=== PATIENT | female | born 1955 | race Hispanic/Latino ===

== ENCOUNTER 2017-05-12 16:10 | Emergency (ER) | payer MEDICAID ==
[2017-05-12 16:55] VITALS: BP 131/80
[2017-05-12] MEDS ORDERED: ZOFRAN IV ONE (18:07)
[2017-05-12] MEDS ORDERED: NACL 0.9% 1000 ML 1,000 ML IV ONE (18:07)
[2017-05-12 18:46] LABS: Basophils % (Auto) 0.8 % (0.0-1.8); Eosinophils % (Auto) 0.5 % (0.0-4.3); Hematocrit 40.8 % (30.3-42.9); Hemoglobin 13.4 gm/dl (10.1-14.3); Mean Corpuscular HGB Conc 33 % (30-34); Mean Corpuscular Hemoglobin 33 pg (28-32); Mean Corpuscular Volume 100 fl (79-97); Platelet Count 166 K/mm3 (140-440); Red Blood Count 4.08 M/mm3 (3.65-5.03); White Blood Count 6.8 K/mm3 (4.5-11.0)
--- NOTE | 2017-05-12 19:00 | Emergency Department Report ---
- General Chief complaint: Weakness Stated complaint: NEAR SYNCOPAL EPISODE Time Seen by Provider: 05/12/17 17:30 Source: patient, EMS Mode of arrival: Stretcher Limitations: No Limitations - Related Data Home Medications Medication Instructions Recorded Confirmed Last Taken Acetaminophen [Acetaminophen TAB] 500 mg PO PRN PRN 03/05/14 03/05/14 Unknown Aspirin [Aspirin TAB] 325 mg PO QDAY 03/05/14 03/05/14 03/05/14 Carvedilol [Coreg] 3.125 mg PO BID 03/05/14 03/05/14 03/05/14 Levothyroxine [Synthroid] 75 mcg PO QAM 03/05/14 03/05/14 03/05/14 Losartan [Cozaar] 25 mg PO QDAY 03/05/14 03/05/14 03/05/14 Sennosides [Senokot] 1 tab PO PRN PRN 03/05/14 03/05/14 Unknown diphenhydrAMINE [Benadryl CAP] 25 mg PO Q8HR PRN 03/05/14 03/05/14 Unknown guaiFENesin/DEXTROMETHORPHAN 1 tab PO PRN PRN 03/05/14 03/05/14 Unknown [Mucinex DM ER 600-30 mg TAB] Allergies Allergy/AdvReac Type Severity Reaction Status Date / Time No Known Allergies Allergy Verified 03/05/14 18:10 ED Review of Systems ROS: Stated complaint: NEAR SYNCOPAL EPISODE Other details as noted in HPI Comment: All other systems reviewed and negative ED Past Medical Hx - Past Medical History Previous Medical History?: Yes Hx Hypertension: Yes Hx Heart Attack/AMI: Yes - Surgical History Past Surgical History?: Yes Hx Coronary Stent: Yes Hx Pacemaker: Yes Hx Internal Defibrillator: Yes - Social History Smoking Status: Never Smoker - Medications Home Medications: Home Medications Medication Instructions Recorded Confirmed Last Taken Type Acetaminophen [Acetaminophen TAB] 500 mg PO PRN PRN 03/05/14 03/05/14 Unknown History Aspirin [Aspirin TAB] 325 mg PO QDAY 03/05/14 03/05/14 03/05/14 History Carvedilol [Coreg] 3.125 mg PO BID 03/05/14 03/05/14 03/05/14 History Levothyroxine [Synthroid] 75 mcg PO QAM 03/05/14 03/05/1403/05/14 History Losartan [Cozaar] 25 mg PO QDAY 03/05/14 03/05/14 03/05/14 History Sennosides [Senokot] 1 tab PO PRN PRN 03/05/14 03/05/14 Unknown History diphenhydrAMINE [Benadryl CAP] 25 mg PO Q8HR PRN 03/05/14 03/05/14 Unknown History guaiFENesin/DEXTROMETHORPHAN 1 tab PO PRN PRN 03/05/14 03/05/14 Unknown History [Mucinex DM ER 600-30 mg TAB] ED Physical Exam - General Limitations: No Limitations General appearance: alert, in no apparent distress - Head Head exam: Present: atraumatic, normocephalic - Eye Eye exam: Present: normal appearance - ENT ENT exam: Present: mucous membranes moist - Neck Neck exam: Present: normal inspection - Respiratory Respiratory exam: Present: normal lung sounds bilaterally. Absent: respiratory distress - Cardiovascular Cardiovascular Exam: Present: regular rate, normal rhythm. Absent: systolic murmur, diastolic murmur, rubs, gallop - GI/Abdominal GI/Abdominal exam: Present: soft, normal bowel sounds - Extremities Exam Extremities exam: Present: normal inspection - Back Exam Back exam: Present: normal inspection - Neurological Exam Neurological exam: Present: alert, oriented X3 - Psychiatric Psychiatric exam: Present: normal affect, normal mood - Skin Skin exam: Present: warm, dry, intact, normal color. Absent: rash ED Course Vital Signs 05/12/17 05/12/17 16:47 17:02 Temperature 98.4 F Pulse Rate 82 Respiratory 18 18 Rate Blood Pressure 131/80 O2 Sat by Pulse 100 100 Oximetry Critical care attestation.: If time is entered above; I have spent that time in minutes in the direct care of this critically ill patient, excluding procedure time. ED Disposition Clinical Impression: Weakness Is pt being admited?: No Does the pt Need Aspirin: No Condition: Good Instructions: Syncope (ED) Referrals: PRIMARY CARE,MD [Primary Care Provider] - 3-5 Days Time of Disposition: 19:29
[2017-05-12 19:08] LABS: Alanine Aminotransferase 38 units/L (7-56); Albumin 4.3 g/dL (3.9-5); Albumin/Globulin Ratio 1.3 %; Alkaline Phosphatase 70 units/L (35-129); Anion Gap 22 mmol/L; Blood Urea Nitrogen 23 mg/dL (7-17); Calcium 9.7 mg/dL (8.4-10.2); Carbon Dioxide 24 mmol/L (22-30); Chloride 101.5 mmol/L (98-107); Creatine Kinase 97 units/L (30-135); Glucose 84 mg/dL (65-100); Potassium 3.9 mmol/L (3.6-5.0); Sodium 144 mmol/L (137-145); Total Protein 7.5 g/dL (6.3-8.2)
--- NOTE | 2017-05-13 09:13 | XRay Report ---
Chest 2 views: History: Weakness. Findings: Normal cardiomediastinal silhouette the trachea is midline. Stable pacemaker. No consolidation, pneumothorax or pleural effusion. Impression: No acute cardiopulmonary findings.
== END 2017-05-12 20:17 ==
LOC: ED 16:10
DX: R53.1 Weakness (principal); I10 Essential (primary) hypertension; I25.2 Old myocardial infarction; Z95.0 Presence of cardiac pacemaker; Z79.82 Long term (current) use of aspirin
CPT/HCPCS: 36415; 71020; 80053; 82330; 82550; 83735; 84443; 84484; 85025; 85610; 96361; 96374; 99284; J2405; J7030

== ENCOUNTER 2018-12-25 01:02 | Emergency (ER) | payer MEDICAID, OTHER ==
[2018-12-25] MEDS ORDERED: TYLENOL PO ONE (01:31)
[2018-12-25] MEDS ORDERED: ZOFRAN ODT PO ONE (01:32)
--- NOTE | 2018-12-25 02:00 | XRay Report ---
FINAL REPORT EXAM: XR CHEST ROUTINE 2V HISTORY: cough COMPARISON: None available. FINDINGS:: Frontal and lateral views of the chest obtained. Mild cardiac enlargement. Left-sided car diac defibrillator is in place. Mild prominence of the pulmonary vasculature hazy bilateral perihilar opacities concerning for pulmonary congestion versus pneumonia. No pleural effusion or pneumothorax. IMPRESSION:: Findings concerning for mild bilateral perihilar pneumonia versus edema.
[2018-12-25 02:09] LABS: Basophils # (Auto) 0.1 K/mm3 (0.0-0.1); Basophils % (Auto) 0.7 % (0.0-1.8); Eosinophils # (Auto) 0.1 K/mm3 (0.0-0.4); Hematocrit 39.1 % (30.3-42.9); Hemoglobin 12.9 gm/dl (10.1-14.3); Lymphocytes # (Auto) 0.3 K/mm3 (1.2-5.4); Lymphocytes % (Auto) 3.9 % (13.4-35.0); Mean Corpuscular HGB Conc 33 % (30-34); Mean Corpuscular Volume 105 fl (79-97); Monocytes # (Auto) 0.6 K/mm3 (0.0-0.8); Monocytes % (Auto) 8.2 % (0.0-7.3); Platelet Count 176 K/mm3 (140-440); Red Blood Count 3.73 M/mm3 (3.65-5.03); Red Cell Distribution Width 16.1 % (13.2-15.2)
[2018-12-25 02:27] LABS: BUN/Creatinine Ratio 21; Blood Urea Nitrogen 19 mg/dL (7-17); Calcium 8.8 mg/dL (8.4-10.2); Hemolysis Index 9
[2018-12-25] MEDS ORDERED: NACL 0.9% 1000 ML 1,000 ML IV ONE (08:17)
[2018-12-25] MEDS ORDERED: ZOFRAN IV ONE (08:17)
[2018-12-25] MEDS ORDERED: LEVAQUIN 750MG/150ML 750 MG/150 ML BAG IV ONE (08:28)
[2018-12-25] MEDS ORDERED: TESSALON PERLES PO ONE (08:28)
--- NOTE | 2018-12-25 10:02 | Emergency Department Report ---
ED General Adult HPI - General Chief complaint: Syncope Stated complaint: NAUSEA & DIARRHEA Time Seen by Provider: 12/25/18 08:14 Source: patient, family Mode of arrival: Ambulatory Limitations: No Limitations - History of Present Illness Initial comments: Patient is a 63-year-old female who is presenting with cough cold congestion for the last 2 weeks. The patient states cough is productive for yellow sputum. Patient also has had some subjective chills and fever. Patient states she is nauseous and has had diarrhea for the last 2 days. Patient states that sometimes she coughs so hard that she feels faint and had a near syncopal episode yesterday. The patient also has some mild dizziness with standing for the last day. Patient's denies sore throat neck stiffness or body aches at this time. Severity scale (0 -10): 4 - Related Data Home Medications Medication Instructions Recorded Confirmed Last Taken Acetaminophen [Acetaminophen TAB] 500 mg PO PRN PRN 03/05/14 03/05/14 Unknown Aspirin [Aspirin TAB] 325 mg PO QDAY 03/05/14 03/05/14 03/05/14 Carvedilol [Coreg] 3.125 mg PO BID 03/05/14 03/05/14 03/05/14 Levothyroxine [Synthroid] 75 mcg PO QAM 03/05/14 03/05/14 03/05/14 Losartan [Cozaar] 25 mg PO QDAY 03/05/14 03/05/14 03/05/14 Sennosides [Senokot] 1 tab PO PRN PRN 03/05/14 03/05/14 Unknown diphenhydrAMINE [Benadryl CAP] 25 mg PO Q8HR PRN 03/05/14 03/05/14 Unknown guaiFENesin/DEXTROMETHORPHAN 1 tab PO PRN PRN 03/05/14 03/05/14 Unknown [Mucinex DM ER 600-30 mg TAB] Previous Rx's Medication Instructions Recorded Last Taken Type ALBUTEROL Inhaler (OR & NICU) 2 puff IH QID PRN #1 inhalation 12/25/18 Unknown Rx [ProAir HFA Inhaler] Benzonatate [Tessalon Perles] 100 mg PO Q8HR #10 capsule 12/25/18 Unknown Rx Ondansetron [Zofran Odt] 4 mg PO Q8HR PRN #10 tab.rapdis 12/25/18 Unknown Rx levoFLOXacin [Levaquin TAB] 500 mg PO QDAY #10 tablet 12/25/18 Unknown Rx Allergies Allergy/AdvReac Type Severity Reaction Status Date / Time No Known Allergies Allergy Verified 03/05/14 18:10 ED Review of Systems ROS: Stated complaint: NAUSEA & DIARRHEA Other details as noted in HPI Comment: All other systems reviewed and negative ED Past Medical Hx - Past Medical History Hx Hypertension: Yes Hx Heart Attack/AMI: Yes - Surgical History Hx Coronary Stent: Yes Hx Pacemaker: Yes Hx Internal Defibrillator: Yes - Social History Smoking Status: Never Smoker Substance Use Type: None - Medications Home Medications: Home Medications Medication Instructions Recorded Confirmed Last Taken Type Acetaminophen [Acetaminophen TAB] 500 mg PO PRN PRN 03/05/14 03/05/14 Unknown History Aspirin [Aspirin TAB] 325 mg PO QDAY 03/05/14 03/05/14 03/05/14 History Carvedilol [Coreg] 3.125 mg PO BID 03/05/14 03/05/14 03/05/14 History Levothyroxine [Synthroid] 75 mcg PO QAM 03/05/14 03/05/14 03/05/14 History Losartan [Cozaar] 25 mg PO QDAY 03/05/14 03/05/14 03/05/14 History Sennosides [Senokot] 1 tab PO PRN PRN 03/05/14 03/05/14 Unknown History diphenhydrAMINE [Benadryl CAP] 25 mg PO Q8HR PRN 03/05/14 03/05/14 Unknown History guaiFENesin/DEXTROMETHORPHAN 1 tab PO PRN PRN 03/05/14 03/05/14 Unknown History [Mucinex DM ER 600-30 mg TAB] ALBUTEROL Inhaler (OR & NICU) 2 puff IH QID PRN #1 inhalation 12/25/18 Unknown Rx [ProAir HFA Inhaler] Benzonatate [Tessalon Perles] 100 mg PO Q8HR #10 capsule 12/25/18 Unknown Rx Ondansetron [Zofran Odt] 4 mg PO Q8HR PRN #10 tab.rapdis 12/25/18 Unknown Rx levoFLOXacin [Levaquin TAB] 500 mg PO QDAY #10 tablet 12/25/18 Unknown Rx ED Physical Exam - General Limitations: No Limitations General appearance: alert, in no apparent distress - Head Head exam: Present: atraumatic, normocephalic - Eye Eye exam: Present: normal appearance - ENT ENT exam: Present: mucous membranes moist - Neck Neck exam: Present: normal inspection - Respiratory Respiratory exam: Present: normal lung sounds bilaterally, rhonchi. Absent: respiratory distress, wheezes, rales, stridor - Cardiovascular Cardiovascular Exam: Present: regular rate, normal rhythm, normal heart sounds. Absent: systolic murmur, diastolic murmur, rubs, gallop - GI/Abdominal GI/Abdominal exam: Present: soft, normal bowel sounds. Absent: distended, tenderness, guarding - Extremities Exam Extremities exam: Present: normal inspection - Back Exam Back exam: Present: normal inspection - Neurological Exam Neurological exam: Present: alert, oriented X3 - Psychiatric Psychiatric exam: Present: normal affect, normal mood - Skin Skin exam: Present: warm, dry, intact, normal color. Absent: rash ED Course Vital Signs 12/25/18 12/25/18 01:19 04:56 Temperature 100.3 F H 99.7 F H Pulse Rate 107 H Respiratory 18 Rate Blood Pressure 163/87 125/67 O2 Sat by Pulse 91 Oximetry ED Medical Decision Making - Lab Data Result diagrams: 12/25/18 01:57 12/25/18 01:57 - EKG Data -: EKG Interpreted by De - EKG Data 12/25/18 10:00 EKG shows sinus tachycardia 119 axis normal intervals and normal there is no ST segment elevation or depressions. Time of interpretation at [facility] - Radiology Data Referring Physician: ED GIANFRANCO Patient Name: LEV KINCAID Date of : 1955 Sex: Female Report Date: 2018-12-25 Report Status: Finalized Findings [facility] [address] [place] [address] XRay Report Signed Patient: LEV KINCAID MR#: [id number] : 1955 Acct:[id number] Age/Sex: 63 / F ADM Date: 12/25/18 Loc: ED Attending Dr: Ordering Physician: ED MD GIANFRANCO Date of Service: 02/11/19 Procedure(s): XR chest routine 2V Accession Number(s): [id number] cc: ED DOC, Fluoro Time In Minutes: FINAL REPORT EXAM: XR CHEST ROUTINE 2V HISTORY: cough COMPARISON: None available. FINDINGS:: Frontal and lateral views of the chest obtained. Mild cardiac enlargement. Left-sided cardiac defibrillator is in place. Mild prominence of the pulmonary vasculature hazy bilateral perihilar opacities concerning for pulmonary congestion versus pneumonia. No pleural effusion or pneumothorax. IMPRESSION:: Findings concerning for mild bilateral perihilar pneumonia versus edema. - Medical Decision Making Patient's chest x-ray shows possible pneumonia versus edema. With the patient's low-grade temperature and the duration of the patient's symptoms leading towards this being infectious etiology. Patient started on Levaquin. Patient's vital signs within normal limits Critical care attestation.: If time is entered above; I have spent that time in minutes in the direct care of this critically ill patient, excluding procedure time. ED Disposition Clinical Impression: Pneumonia Qualifiers: Pneumonia type: due to unspecified organism Laterality: right Lung location: middle lobe of lung Qualified Code(s): J18.1 - Lobar pneumonia, unspecified organism Disposition: DC-01 TO HOME OR SELFCARE Is pt being admited?: Yes Does the pt Need Aspirin: No Condition: Stable Instructions: Bacterial Pneumonia (ED) Referrals: WOLFGANG NGUYEN [Primary Care Provider] - 3-5 Days Time of Disposition: 10:02
[2018-12-25 10:23] VITALS: BP 121/70
== END 2018-12-25 10:22 | disposition home or self-care (01) ==
LOC: ED 01:02
DX: J18.1 Lobar pneumonia, unspecified organism (principal); I10 Essential (primary) hypertension; I25.2 Old myocardial infarction; Z95.5 Presence of coronary angioplasty implant and graft; Z95.818 Presence of other cardiac implants and grafts; Z79.899 Other long term (current) drug therapy
CPT/HCPCS: 36415; 71046; 80048; 85025; 93005; 93010; 96365; 96375; 99284; J1956; J2405; J7030; Q0162

== ENCOUNTER 2018-12-27 22:01 | Inpatient (IN) | payer SELFPAY ==
[2018-12-27] MEDS ORDERED: NORCO 7.5/325 PO ONE (22:11)
[2018-12-27] MEDS ORDERED: ATROVENT IH ONE (22:11)
[2018-12-27] MEDS ORDERED: SOLU-Medrol IV ONE (22:11)
[2018-12-27] MEDS ORDERED: PROVENTIL IH ONE (22:11)
--- NOTE | 2018-12-27 22:15 | Emergency Department Report ---
- General Stated Complaint: CHEST PAIN/COUGH Time Seen by Provider: 12/27/18 22:07 Source: patient - History of Present Illness Initial Comments: Patient is a 63-year-old female who is presenting with persistent cough cold congestion. Patient was seen by me 2 days ago and presented originally for cough for the last 2 weeks. Patient states that she also has subjective fevers and had a temperature 100.3 2 days ago. Patient states that she has gotten her Levaquin filled. Patient says she wheezes often does have COPD. Patient states that her breathing has gotten worse. She has not taken a breathing treatment today. Patient has also continued to have chills. Patient states this is the worsening shortness of breath and cough she also has developed some ankle edema in the last 2 days. - Related Data Home Medications Medication Instructions Recorded Confirmed Last Taken Acetaminophen [Acetaminophen TAB] 500 mg PO PRN PRN 03/05/14 03/05/14 Unknown Aspirin [Aspirin TAB] 325 mg PO QDAY 03/05/14 03/05/14 03/05/14 Carvedilol [Coreg] 3.125 mg PO BID 03/05/14 03/05/14 03/05/14 Levothyroxine [Synthroid] 75 mcg PO QAM 03/05/14 03/05/14 03/05/14 Losartan [Cozaar] 25 mg PO QDAY 03/05/14 03/05/14 03/05/14 Sennosides [Senokot] 1 tab PO PRN PRN 03/05/14 03/05/14 Unknown diphenhydrAMINE [Benadryl CAP] 25 mg PO Q8HR PRN 03/05/14 03/05/14 Unknown guaiFENesin/DEXTROMETHORPHAN 1 tab PO PRN PRN 03/05/14 03/05/14 Unknown [Mucinex DM ER 600-30 mg TAB] Previous Rx's Medication Instructions Recorded Last Taken Type ALBUTEROL Inhaler (OR & NICU) 2 puff IH QID PRN #1 inhalation 12/25/18 Unknown Rx [ProAir HFA Inhaler] Benzonatate [Tessalon Perles] 100 mg PO Q8HR #10 capsule 12/25/18 Unknown Rx Ondansetron [Zofran Odt] 4 mg PO Q8HR PRN #10 tab.rapdis 12/25/18 Unknown Rx levoFLOXacin [Levaquin TAB] 500 mg PO QDAY #10 tablet 12/25/18 Unknown Rx Allergies Allergy/AdvReac Type Severity Reaction Status Date / Time No Known Allergies Allergy Verified 03/05/14 18:10 ED Review of Systems ROS: Stated complaint: CHEST PAIN/COUGH Other details as noted in HPI Comment: All other systems reviewed and negative ED Past Medical Hx - Past Medical History Hx Hypertension: Yes Hx Heart Attack/AMI: Yes - Surgical History Hx Coronary Stent: Yes Hx Pacemaker: Yes Hx Internal Defibrillator: Yes - Social History Smoking Status: Never Smoker Substance Use Type: None - Medications Home Medications: Home Medications Medication Instructions Recorded Confirmed Last Taken Type Acetaminophen [Acetaminophen TAB] 500 mg PO PRN PRN 03/05/14 03/05/14 Unknown History Aspirin [Aspirin TAB] 325 mg PO QDAY 03/05/14 03/05/14 03/05/14 History Carvedilol [Coreg] 3.125 mg PO BID 03/05/14 03/05/14 03/05/14 History Levothyroxine [Synthroid] 75 mcg PO QAM 03/05/14 03/05/14 03/05/14 History Losartan [Cozaar] 25 mg PO QDAY 03/05/14 03/05/14 03/05/14 History Sennosides [Senokot] 1 tab PO PRN PRN 03/05/14 03/05/14 Unknown History diphenhydrAMINE [Benadryl CAP] 25 mg PO Q8HR PRN 03/05/14 03/05/14 Unknown History guaiFENesin/DEXTROMETHORPHAN 1 tab PO PRN PRN 03/05/14 03/05/14 Unknown History [Mucinex DM ER 600-30 mg TAB] ALBUTEROL Inhaler (OR & NICU) 2 puff IH QID PRN #1 inhalation 12/25/18 Unknown Rx [ProAir HFA Inhaler] Benzonatate [Tessalon Perles] 100 mg PO Q8HR #10 capsule 12/25/18 Unknown Rx Ondansetron [Zofran Odt] 4 mg PO Q8HR PRN #10 tab.rapdis 12/25/18 Unknown Rx levoFLOXacin [Levaquin TAB] 500 mg PO QDAY #10 tablet 02/11/19 Unknown Rx ED Physical Exam - General General appearance: alert, in distress - Head Head exam: Present: atraumatic, normocephalic - Eye Eye exam: Present: normal appearance - ENT ENT exam: Present: mucous membranes moist - Neck Neck exam: Present: normal inspection - Respiratory Respiratory exam: Present: respiratory distress (mild), wheezes. Absent: normal lung sounds bilaterally, rales, rhonchi, stridor - Cardiovascular Cardiovascular Exam: Present: normal rhythm, tachycardia. Absent: systolic murmur, diastolic murmur, rubs, gallop - GI/Abdominal GI/Abdominal exam: Present: soft, normal bowel sounds. Absent: distended, tenderness, guarding, rebound - Extremities Exam Extremities exam: Present: normal inspection, joint swelling (ankles bilaterally) - Back Exam Back exam: Present: normal inspection - Neurological Exam Neurological exam: Present: alert, oriented X3 - Psychiatric Psychiatric exam: Present: normal affect, normal mood - Skin Skin exam: Present: warm, dry, intact, normal color. Absent: rash ED Course Vital Signs 12/27/18 12/27/18 12/27/18 22:09 22:10 22:16 Temperature 100 F H Pulse Rate 126 H 128 H Pulse Rate [ Anterior Bilateral Throughout] Respiratory 12 Rate Respiratory Rate [Anterior Bilateral Throughout] Blood Pressure 163/82 152/83 152/82 Blood Pressure [Left] O2 Sat by Pulse 86 Oximetry 12/27/18 12/27/18 12/27/18 22:21 22:28 22:30 Temperature Pulse Rate 124 H 120 H Pulse Rate [ 121 H Anterior Bilateral Throughout] Respiratory 14 Rate Respiratory 18 Rate [Anterior Bilateral Throughout] Blood Pressure 151/91 Blood Pressure [Left] O2 Sat by Pulse Oximetry 12/27/18 12/27/18 12/27/18 22:41 22:46 23:00 Temperature Pulse Rate 125 H 120 H Pulse Rate [ Anterior Bilateral Throughout] Respiratory 25 H 25 H 20 Rate Respiratory Rate [Anterior Bilateral Throughout] Blood Pressure 171/93 152/82 Blood Pressure [Left] O2 Sat by Pulse 96 Oximetry 12/27/18 12/27/18 12/27/18 23:15 23:30 23:45 Temperature Pulse Rate 122 H 119 H Pulse Rate [ 120 H Anterior Bilateral Throughout] Respiratory 26 H 17 Rate Respiratory 16 Rate [Anterior Bilateral Throughout] Blood Pressure 148/122 129/72 Blood Pressure [Left] O2 Sat by Pulse Oximetry 12/28/18 12/28/18 00:00 00:54 Temperature Pulse Rate 120 H 121 H Pulse Rate [ Anterior Bilateral Throughout] Respiratory 18 14 Rate Respiratory Rate [Anterior Bilateral Throughout] Blood Pressure 133/68 Blood Pressure 106/57 [Left] O2 Sat by Pulse 96 Oximetry ED Medical Decision Making - Lab Data Result diagrams: 12/27/18 22:37 12/27/18 22:37 Lab Results 12/27/18 12/27/18 12/27/18 Range/Units 22:37 22:37 22:37 WBC 5.7 (4.5-11.0) K/mm3 RBC 3.63 L (3.65-5.03) M/mm3 Hgb 12.5 (10.1-14.3) gm/dl Hct 38.0 (30.3-42.9) % MCV 105 H (79-97) fl MCH 34 H (28-32) pg MCHC 33 (30-34) % RDW 15.7 H (13.2-15.2) % Plt Count 153 (140-440) K/mm3 Lymph % (Auto) 11.3 L (13.4-35.0) % [place] % (Auto) 9.5 H (0.0-7.3) % Eos % (Auto) 0.2 (0.0-4.3) % Baso % (Auto) 0.9 (0.0-1.8) % Lymph # 0.6 L (1.2-5.4) K/mm3 [place] # 0.5 (0.0-0.8) K/mm3 Eos # 0.0 (0.0-0.4) K/mm3 Baso # 0.1 (0.0-0.1) K/mm3 Seg Neutrophils % 78.1 H (40.0-70.0) % Seg Neutrophils # 4.5 (1.8-7.7) K/mm3 Sodium 136 L (137-145) mmol/L Potassium 4.0 (3.6-5.0) mmol/L Chloride 100.0 (98-107) mmol/L Carbon Dioxide 23 (22-30) mmol/L Anion Gap 17 mmol/L BUN 9 (7-17) mg/dL Creatinine 0.8 (0.7-1.2) mg/dL Estimated GFR > 60 ml/min BUN/Creatinine Ratio 11 % Glucose 95 (65-100) mg/dL Lactic Acid 1.30 (0.7-2.0) mmol/L Calcium 8.9 (8.4-10.2) mg/dL NT-Pro-B Natriuret Pep 2231 H (0-900) pg/mL - EKG Data -: EKG Interpreted by Nd - EKG Data 12/27/18 22:28 EKG shows sinus tachycardia 124 axis is leftward and was otherwise normal. Salena ent has septal Q waves present but no ST segment elevations or depressions. Time of interpretation is 2224 - Radiology Data [facility] [address] [place] [address] XRay Report Signed Patient: LEV KINCAID MR#: [id number] : 1955 Acct:[id number] Age/Sex: 63 / F ADM Date: 12/27/18 Loc: ED Attending Dr: Ordering Physician: MARY DIAZ MD Date of Service: 12/27/18 Procedure(s): XR chest 1V ap Accession Number(s): [id number] cc: MARY DIAZ MD Fluoro Time In Minutes: FINAL REPORT PROCEDURE: XR CHEST 1V AP TECHNIQUE: Chest radiograph anteroposterior view. CPT 51974 HISTORY: cough with shortness of breath COMPARISON: 12/25/2018. FINDINGS: There is moderate elevation of right hemidiaphragm. There is interval increase in the inhomogeneous densities involving left lower lung. New infiltrates are identified in the right upper lung. Right hilar structures are prominent. Mild cardiomegaly is noted. A unip olar cardiac device is noted on the left side with lead in place. IMPRESSION: Interval progression of the left pulmonary infiltrates and new infiltrates in the right upper lobe suspicious for pneumonia.. Transcribed By: [facility] Dictated By: CARLOS ENRIQUE NI Electronically Authenticated By: CARLOS ENRIQUE NI Signed Date/Time: 12/27/182240 DD/ 38 TD/TT: 12/27/182238 - Medical Decision Making Patient with no interval worsening of her chest x-ray. X-rays consistent with infiltrates suggestive of pneumonia. Patient does however also have elevated BNP as she has had some interval swelling of her ankles. 40 Lasix been added to her regimen. Patient had blood cultures drawn she's been started on Rocephin and azithromycin. Patient received an hour-long neb treatment which did help her symptoms. Patient still congested and wheezing however. Patient to be admitted to the hospitalist service. Critical care attestation.: If time is entered above; I have spent that time in minutes in the direct care of this critically ill patient, excluding procedure time. ED Disposition Clinical Impression: Pneumonia, Respiratory distress, Bronchospasm Disposition: OP ADMIT IP TO THIS HOSP Is pt being admited?: Yes Does the pt Need Aspirin: No Condition: Poor Instructions: Bacterial Pneumonia (ED) Referrals: LC WORTHINGTON MD [Primary Care Provider] - 3-5 Days Time of Disposition: 01:15
[2018-12-27] MEDS ORDERED: NACL 0.9% 500 ML 500 ML IV ONE (22:25)
[2018-12-27] MEDS ORDERED: ROCEPHIN/NS 2 GM/100 ML 2 GM/100 ML BAG IV ONE (22:25)
[2018-12-27] MEDS ORDERED: ZITHROMAX 500 MG in NACL 0.9% 250ML 250 ML IV ONE (22:25)
--- NOTE | 2018-12-27 22:41 | XRay Report ---
FINAL REPORT PROCEDURE: XR CHEST 1V AP TECHNIQUE: Chest radiograph anteroposterior view. CPT 31463 HISTORY: cough with shortness of breath COMPARISON: 12/25/2018. FINDINGS: There is moderate elevation of right hemidiaphragm. There is interval increase in the inhomogeneous d ensities involving left lower lung. New infiltrates are identified in the right upper lung. Right hil ar structures are prominent. Mild cardiomegaly is noted. A unipolar cardiac device is noted on the le ft side with lead in place. IMPRESSION: Interval progression of the left pulmonary infiltrates and new infiltrates in the right upper lobe silver spicious for pneumonia..
[2018-12-27 22:56] LABS: Basophils # (Auto) 0.1 K/mm3 (0.0-0.1); Basophils % (Auto) 0.9 % (0.0-1.8); Eosinophils % (Auto) 0.2 % (0.0-4.3); Hemoglobin 12.5 gm/dl (10.1-14.3); Lymphocytes # (Auto) 0.6 K/mm3 (1.2-5.4); Lymphocytes % (Auto) 11.3 % (13.4-35.0); Mean Corpuscular HGB Conc 33 % (30-34); Mean Corpuscular Volume 105 fl (79-97); Monocytes # (Auto) 0.5 K/mm3 (0.0-0.8); Monocytes % (Auto) 9.5 % (0.0-7.3); Platelet Count 153 K/mm3 (140-440); Red Blood Count 3.63 M/mm3 (3.65-5.03); Red Cell Distribution Width 15.7 % (13.2-15.2)
[2018-12-28 00:31] LABS: BUN/Creatinine Ratio 11; Blood Urea Nitrogen 9 mg/dL (7-17); Calcium 8.9 mg/dL (8.4-10.2); Hemolysis Index 13
[2018-12-28] MEDS ORDERED: LASIX IV ONE (00:48)
[2018-12-28 02:13] LABS: Bilirubin,Urine NEG (Negative); Blood,Urine NEG (Negative); Color,Urine Yellow (Yellow); Mucus,Urine FEW /HPF; Urobilinogen,Urine < 2.0 mg/dL (<2.0)
[2018-12-28] MEDS ORDERED: ZOFRAN IV PRN (02:32)
[2018-12-28 03:55] LABS: Creatine Kinase MB 3.7 ng/mL (0.0-4.0)
--- NOTE | 2018-12-28 04:32 | History and Physical Report ---
CHIEF COMPLAINT: Congestion. Other complaint includes chest discomfort. HISTORY OF PRESENT ILLNESS: The patient is a 63-year-old female, who said she has been having cough and congestion going on for about 2 days. Prior to that, the patient came to the Emergency Room presenting with cough only that lasted for 2 weeks and was given treatment with a prescription to fill Levaquin and take as outpatient. The patient said while she filled that prescription, she started having worsening shortness of breath and cough and there was also history of fever and chills and also swelling in the ankles and the patient presented for evaluation. She denied history of dizziness and said that she has some chest discomfort with coughing. PAST MEDICAL HISTORY: Pertinent for hypertension, coronary artery disease, status post myocardial infarction. PAST SURGICAL HISTORY: Pertinent for coronary stent placement, pacemaker placement, defibrillator placement. FAMILY HISTORY: Noncontributory. SOCIAL HISTORY: The patient does not smoke, does not drink alcohol and does not use illicit drugs. MEDICATIONS: The patient is on Tylenol 500 mg by mouth, frequency unknown as needed for headache and fever, aspirin 325 mg by mouth daily, Coreg 3.125 mg by mouth twice daily, Synthroid 75 mcg by mouth every morning, losartan 25 mg by mouth daily, Senokot 1 tablet by mouth as needed, frequency unknown, Benadryl 25 mg by mouth every 8 hours as needed for itching and allergic reaction, Mucinex DM ER 600/30 mg 1 by mouth as needed, frequency unknown, albuterol inhaler 2 puffs by inhalation q.i.d. as needed for shortness of breath, benzonatate or Tessalon Perles 100 mg by mouth every 8 hours, Zofran ODT 4 mg under the tongue q. 8 hours as needed for nausea and vomiting, Levaquin 500 mg by mouth daily. ALLERGIES: There are no known drug allergies. REVIEW OF SYSTEMS: CONSTITUTIONAL: There is fever, there is chills, but no diaphoresis. HEENT: There is no headache or sore throat. CARDIOVASCULAR: There is pleuritic chest pain, but no orthopnea. RESPIRATORY: Shortness of breath is present. Cough is present. Congestion is present. Wheezing is present. GASTROINTESTINAL: There is no nausea, no vomiting, no abdominal pain, diarrhea or constipation. NEUROLOGICAL: There is no numbness, no dizziness, no altered mental status. MUSCULOSKELETAL: Swelling of the ankles noted. No joint pain. DERMATOLOGICAL SYSTEM: There is no skin rash or itching. GENITOURINARY SYSTEM: There is no dysuria, hematuria, or flank pain. Rest of system review is normal. PHYSICAL EXAMINATION: GENERAL: At the time of exam, the patient was found to be alert, oriented x 3 and in mild distress due to shortness of breath. VITAL SIGNS: Shows temperature of 100 degrees Fahrenheit, pulse of 126, respirations 12, blood pressure 163/82, O2 sat of 86% on room air. HEENT: Showed pupils to be equal, round, reactive to light and accommodating. Extraocular muscles are intact. NECK: Supple with no JVD or carotid bruit. CARDIOVASCULAR SYSTEM: Show normal first and second heart sounds with no gallops or murmur. EXTREMITIES: The patient has 1+ ankle edema. RESPIRATORY SYSTEM: Show reduced air entry on both sides of the lung with respiratory wheezing. GASTROINTESTINAL SYSTEM: Show abdomen to be full, soft, nontender with no organomegaly or rigidity. NEUROLOGIC: Shows no focal deficit. MUSCULOSKELETAL: Show ankle swelling and no joint tenderness. DERMATOLOGICAL SYSTEM: Show no skin rash. GENITOURINARY SYSTEM: Show no costovertebral angle tenderness. PERTINENT LABORATORY AND IMAGING STUDIES: The patient had chest x-ray done that was read as showing interval progression of the left pulmonary infiltrate and new infiltrate in the right upper lobe suspicious for pneumonia. Lab results, the patient's CBC showed normal white count, normal hemoglobin and normal hematocrit with CBC differential showing elevated segmented neutrophil count of 78.1 and the patient's chemistry showed low sodium of 136, elevated brain natriuretic peptide level of 2231 and unremarkable urinalysis. DIAGNOSES: 1. Bilateral pneumonia. 2. Dyspnea, rule out congestive heart failure. PLAN OF CARE: 1. The patient will be admitted to telemetry as inpatient. 2. The patient will have cardiac enzymes involving troponin, total CK and CK-MB checked q. 6 hours x 2 level. 3. The patient will have 2D echo done in the morning. 4. The patient will have IV ceftriaxone 1 gram daily and IV Zithromax 500 mg daily. 5. The patient will have albuterol nebulizer 2.5 mg q. 6 hours as needed for shortness of breath. 6. The patient will be on Tylenol 650 mg by mouth every 4 hours for fever and headache and will be on Robitussin 200 mg by mouth every 4 hours as needed for cough and the patient will be on her home medications as shown in the medication reconciliation section. 7. The patient will be on oxygen by nasal cannula at 2 liters per minute. 8. The patient's diet will be 2 g sodium diet. 9. The patient will be on heparin 5000 units subcutaneous q. 12 hours for DVT prophylaxis. JOB# [id number] OCN/NTS
[2018-12-28] MEDS: HEPARIN SUB-Q SCH ×3 (05:55→22:11)
[2018-12-28] MEDS: SYNTHROID PO SCH (06:43)
[2018-12-28] MEDS: ZITHROMAX 500 MG in NACL 0.9% 250ML 250 ML IV SCH (10:24)
[2018-12-28] MEDS: ASPIRIN PO SCH (10:24)
[2018-12-28] MEDS: COZAAR PO SCH (10:25)
[2018-12-28] MEDS: COREG PO SCH ×2 (10:25→22:11)
[2018-12-28] MEDS: ROCEPHIN/NS 1 GM/50 ML 1 GM/50 ML BAG IV SCH (10:44)
[2018-12-28] MEDS: TYLENOL PO PRN (10:49)
[2018-12-28] MEDS: ROBITUSSIN PO PRN ×3 (10:50→23:01)
--- NOTE | 2018-12-28 12:31 | Event Note ---
Date: 12/28/18 Patient with history of CHF, follows with Dr. Ross, cardiology, presents with shortness of breath. I have seen and examined her. Continue current management.
--- NOTE | 2018-12-28 13:50 | Consultation ---
History of Present Illness Consult date: 12/28/18 Consult reason: congestive heart failure History of present illness: Patient is a 63 year old woman with a history of coronary artery disease, is chemic cardiomyopathy and has an indwelling cardiac defibrillator. She presents to this hospital with complaints of shortness of breath, coughs and lower extremity edema. Chest x-ray shows heart failure. Further cardiac evaluation with an echocardiogram reports evidence of at least moderate MR, moderate pulmonary hypertension. Left atrium is dilated with severely decreased left ventricular systolic function ejection 15-20%. Cardiac consultation was requested. Medications and Allergies Allergies Allergy/AdvReac Type Severity Reaction Status Date / Time No Known Allergies Allergy Verified 03/05/14 18:10 Home Medications Medication Instructions Recorded Confirmed Last Taken Type Acetaminophen [Acetaminophen TAB] 500 mg PO PRN PRN 03/05/14 12/28/18 12/07/18 20:00 History Aspirin [Aspirin TAB] 325 mg PO QDAY 03/05/14 12/28/18 11/16/18 09:00 History Carvedilol [Coreg] 3.125 mg PO BID 03/05/14 12/28/18 12/27/18 21:00 History Levothyroxine [Synthroid] 75 mcg PO QAM 03/05/14 12/28/18 12/27/18 06:00 History Losartan [Cozaar] 25 mg PO QDAY 03/05/14 12/28/18 12/27/18 21:00 History Sennosides [Senokot] 1 tab PO PRN PRN 03/05/14 12/28/18 11/17/18 21:00 History diphenhydrAMINE [Benadryl CAP] 25 mg PO Q8HR PRN 03/05/14 12/28/18 11/16/18 20:00 History guaiFENesin/DEXTROMETHORPHAN 1 tab PO PRN PRN 03/05/14 12/28/18 12/28/18 02:00 History [Mucinex DM ER 600-30 mg TAB] ALBUTEROL Inhaler (OR & NICU) 2 puff IH QID PRN #1 inhalation 12/25/18 12/28/18 12/28/18 02:00 Rx [ProAir HFA Inhaler] Benzonatate [Tessalon Perles] 100 mg PO Q8HR #10 capsule 0212/28/18 12/27/18 02:00 Rx Ondansetron [Zofran Odt] 4 mg PO Q8HR PRN #10 tab.rapdis 12/25/18 12/28/18 11/21/18 20:00 Rx levoFLOXacin [Levaquin TAB] 500 mg PO QDAY #10 tablet 12/25/18 12/28/18 12/28/18 02:00 Rx Carvedilol 3.125 mg PO BID 12/28/18 12/28/18 12/21/18 09:00 History Famotidine 40 mg PO BID 12/28/18 12/28/18 12/27/18 21:00 History Furosemide 40 mg PO DAILY 12/28/18 12/28/18 12/28/18 03:00 History Klor-Con 10 10 meq PO DAILY 12/28/18 12/28/18 12/26/18 09:00 History amLODIPine 2.5 mg PO DAILY PRN 12/28/18 12/28/18 12/05/18 22:00 History Active Meds: Active Medications Acetaminophen (Tylenol) 650 mg PO Q4H PRN PRN Reason: Fever >101 Last Admin: 12/28/18 10:49 Dose: 650 mg Documented by: Albuterol (Proventil) 2.5 mg IH Q6HRT PRN PRN Reason: Shortness Of Breath Aspirin (Aspirin) 325 mg PO QDAY [facility] Last Admin: 12/28/18 10:24 Dose: 325 mg Documented by: Carvedilol (Coreg) 3.125 mg PO BID [facility] Last Admin: 12/28/18 10:25 Dose: 3.125 mg Documented by: Diphenhydramine HCl (Benadryl) 25 mg PO Q8H PRN PRN Reason: Allergy Symptoms Guaifenesin (Robitussin) 200 mg PO Q4H PRN PRN Reason: Cough Last Admin: 12/28/18 10:50 Dose: 200 mg Documented by: Heparin Sodium (Porcine) (Heparin) 5,000 unit SUB-Q Q12HR [facility] Last Admin: 12/28/18 10:26 Dose: 5,000 unit Documented by: Azithromycin 500 mg/ Sodium (Chloride) 250 mls @ 250 mls/hr IV Q24HR [facility] Last Admin: 12/28/18 10:24 Dose: 250 mls/hr Documented by: Ceftriaxone Sodium (Rocephin/Ns 1 Gm/50 Ml) 1 gm in 50 mls @ 100 mls/hr IV Q24HR [facility]; Protocol Last Admin: 12/28/18 10:44 Dose: 100 mls/hr Documented by: Levothyroxine Sodium (Synthroid) 75 mcg PO QAM@0600 [facility] Last Admin: 12/28/18 06:43 Dose: 75 mcg Documented by: Losartan Potassium (Cozaar) 25 mg PO QDAY [facility] Last Admin: 12/28/18 10:25 Dose: 25 mg Documented by: Ondansetron HCl (Zofran) 4 mg IV Q8H PRN PRN Reason: Nausea And Vomiting Senna (Senokot) 8.6 mg PO BID PRN PRN Reason: Constipation Physical Examination Vital Signs Temp Pulse BP Pulse Ox 100 F H 126 H 163/82 86 12/27/18 22:09 12/27/18 22:09 12/27/18 22:09 12/27/18 22:09 General appearance: no acute distress HEENT: Positive: PERRL Cardiac: Positive: Reg Rate and Rhythm Lungs: Positive: Decreased Breath Sounds Neuro: Positive: Grossly Intact Extremities: Present: +1 Edema Results 12/27/18 22:37 12/27/18 22:37 Cardiac Enzymes 12/28/18 Range/Units 03:18 CK-MB (CK-2) 3.7 (0.0-4.0) ng/mL CBC 12/27/18 Range/Units 22:37 WBC 5.7 (4.5-11.0) K/mm3 RBC 3.63 L (3.65-5.03) M/mm3 Hgb 12.5 (10.1-14.3) gm/dl Hct 38.0 (30.3-42.9) % Plt Count 153 (140-440) K/mm3 Lymph # 0.6 L (1.2-5.4) K/mm3 [place] # 0.5 (0.0-0.8) K/mm3 Eos # 0.0 (0.0-0.4) K/mm3 Baso # 0.1 (0.0-0.1) K/mm3 Comprehensive Metabolic Panel 12/27/18 Range/Units 22:37 Sodium 136 L (137-145) mmol/L Potassium 4.0 (3.6-5.0) mmol/L Chloride 100.0 (98-107) mmol/L Carbon Dioxide 23 (22-30) mmol/L BUN 9 (7-17) mg/dL Creatinine 0.8 (0.7-1.2) mg/dL Glucose 95 (65-100) mg/dL Calcium 8.9 (8.4-10.2) mg/dL Assessment and Plan Acute systolic heart failure Hx of Ischemic CMP Hx of CAD Presence of AICD Recommendations: Medical therapy for heart failure to include IV diuretics, beta blockers, afterload reduction agents and low dose aspirin. Medical therapy for coronary artery disease. Fluid/Sodium restriction. Daily weight. Pre-discharged persantine thallium for ischemic evaluation.
[2018-12-28] MEDS: LASIX IV SCH (17:59)
[2018-12-28] MEDS ORDERED: LASIX PO SCH (18:00)
[2018-12-28] MEDS: BENADRYL PO PRN (23:01)
[2018-12-29] MEDS: TYLENOL PO PRN (01:35)
[2018-12-29] MEDS: PROVENTIL IH PRN ×3 (02:01→19:13)
[2018-12-29] MEDS: ROBITUSSIN PO PRN ×3 (06:14→14:33)
[2018-12-29] MEDS: SYNTHROID PO SCH (06:14)
[2018-12-29] MEDS: LASIX IV SCH ×2 (06:15→18:41)
[2018-12-29] MEDS: ROCEPHIN/NS 1 GM/50 ML 1 GM/50 ML BAG IV SCH (10:01)
[2018-12-29] MEDS: ASPIRIN PO SCH (10:02)
[2018-12-29] MEDS: ALDACTONE PO SCH (10:02)
[2018-12-29] MEDS: ZITHROMAX 500 MG in NACL 0.9% 250ML 250 ML IV SCH (10:02)
[2018-12-29] MEDS: COREG PO SCH ×2 (10:03→21:32)
[2018-12-29] MEDS: COZAAR PO SCH (10:03)
[2018-12-29] MEDS: HEPARIN SUB-Q SCH ×2 (10:06→21:34)
--- NOTE | 2018-12-29 10:07 | Progress Note ---
Addendum entered and electronically signed by JUANA GRULLON MD 12/29/18 11:50: Ischemic cardiomyopathy LVEF 30-35% Patent LAD and Cx stents by [facility] 2011 MPI revealed fixed anterior, anterolateral, lateral and septal wall defect, no ischemia 02/2014 Shortness of breath Bilateral pulmonary infiltrates on CXR Acute on chronic systolic heart failure Patient admits non-compliance with her diuretic therapy Patient admits gaining 16 lbs in weight Patient is Coronary artery disease s/p PCI to LAD and Cx Recommendations: Continue empiric antibiotic therapy Continue IV diuresis, afterload reduction Monitor Is and Os and renal function Will continue to follow Original Note: <QUIANA CAMPA - Last Filed: 12/29/18 10:06> Assessment and Plan Acute systolic heart failure Hx of Ischemic CMP Hx of CAD Presence of AICD Recommendations: Aggressive medical therapy for heart failure to include IV diuretics, beta blockers, afterload reduction agents and low dose aspirin. Continue medical therapy for coronary artery disease. Fluid/Sodium restriction. Daily weight. Pre-discharged persantine thallium for ischemic evaluation. Subjective Date of service: 12/29/18 Interval history: Patient reports continued shortness of breath with minimal exertion. Objective Vital Signs Temp Pulse Pulse Resp Resp BP BP 12/29/18 10:03 131 H 153/79 12/29/18 10:02 131 H 153/79 12/29/18 09:01 100 H 20 12/29/18 08:51 104 H 20 12/29/18 08:01 12/29/18 08:00 98.3 F 131 H 25 H 153/79 12/29/18 04:13 97.2 F L 17 125/68 12/29/18 02:10 103 H 18 12/29/18 02:04 99 H 18 12/29/18 01:35 22 12/29/18 01:31 101.2 F H 17 137/73 12/29/18 00:35 20 12/28/18 20:35 96 H 12/28/18 20:28 12/28/18 19:41 98.0 F 96 H 20 132/67 12/28/18 16:15 97.9 F 92 H 18 125/77 12/28/18 12:17 109/64 12/28/18 10:25 109 H 133/67 Pulse Ox 12/29/18 10:03 12/29/18 10:02 12/29/18 09:01 12/29/18 08:51 12/29/18 08:01 96 12/29/18 08:00 96 12/29/18 04:13 12/29/18 02:10 12/29/18 02:04 12/29/18 01:35 12/29/18 01:31 12/29/18 00:35 12/28/18 20:35 12/28/18 20:28 95 12/28/18 19:41 97 12/28/18 16:15 93 12/28/18 12:17 12/28/18 10:25 - Physical Examination General: No Apparent Distress HEENT: Positive: PERRL Cardiac: Positive: Tachycardia Neuro: Positive: Grossly Intact Extremities: Present: +1 Edema <JUANA GRULLON K - Last Filed: 12/29/18 11:50> Objective Vital Signs Temp Pulse Pulse Resp Resp BP BP 12/29/18 10:03 131 H 153/79 12/29/18 10:02 131 H 153/79 12/29/18 09:01 100 H 20 12/29/18 08:51 104 H 20 12/29/18 08:01 12/29/18 08:00 98.3 F 131 H 25 H 153/79 12/29/18 04:13 97.2 F L 17 125/68 12/29/18 02:10 103 H 18 12/29/18 02:04 99 H 18 12/29/18 01:35 22 12/29/18 01:31 101.2 F H 17 137/73 12/29/18 00:35 20 12/28/18 20:35 96 H 12/28/18 20:28 12/28/18 19:41 98.0 F 96 H 20 132/67 12/28/18 16:15 97.9 F 92 H 18 125/77 12/28/18 12:17 109/64 Pulse Ox 12/29/18 10:03 12/29/18 10:02 12/29/18 09:01 12/29/18 08:51 12/29/18 08:01 96 12/29/18 08:00 96 12/29/18 04:13 12/29/18 02:10 02/15/19 02:04 12/29/18 01:35 12/29/18 01:31 12/29/18 00:35 12/28/18 20:35 12/28/18 20:28 95 12/28/18 19:41 97 12/28/18 16:15 93 12/28/18 12:17
--- NOTE | 2018-12-29 12:59 | Progress Note ---
Assessment and Plan Assessment and plan: Acute on chronic systolic heart failure. Lasix iv Coreg po Cardiology following Ischemic Cardiomyopathy s/p AICD CAD s/p PCI Bilateral pneumonia. Cont Rocephin, Zithromax Hypthyroidsim. Levothyroxine DVT prophylaxis Full code status History Interval history: Shortness of breath Hospitalist Physical - Physical exam Narrative exam: GEN: Not in acute distress, HEENT: Normocephalic, atraumatic, Neck: supple, No JVD Lungs: Bilateral crackles,no wheeze Heart:S1 and S2 regular, no murmurs, rubs or gallop, Abd:soft, non tender, non distended, normal bowel sounds Ext: No edema, no clubbing or cyanosis Neuro: AAO x 3, moves all extremities, no focal neurological signs - Constitutional Vitals: Temp Pulse Resp BP Pulse Ox 98.3 F 131 H 20 153/79 96 12/29/18 08:00 12/29/18 10:03 12/29/18 09:01 12/29/18 10:03 12/29/18 08:01 General appearance: Present: no acute distress Results - Labs CBC & Chem 7: 12/27/18 22:37 12/27/18 22:37 Labs: Laboratory Last Values WBC 5.7 K/mm3 (4.5-11.0) 12/27/18 22:37 RBC 3.63 M/mm3 (3.65-5.03) L 12/27/18 22:37 Hgb 12.5 gm/dl (10.1-14.3) 12/27/18 22:37 Hct 38.0 % (30.3-42.9) 12/27/18 22:37 MCV 105 fl (79-97) H 12/27/18 22:37 MCH 34 pg (28-32) H 12/27/18 22:37 MCHC 33 % (30-34) 12/27/18 22:37 RDW 15.7 % (13.2-15.2) H 12/27/18 22:37 Plt Count 153 K/mm3 (140-440) 12/27/18 22:37 Lymph % (Auto) 11.3 % (13.4-35.0) L 12/27/18 22:37 [place] % (Auto) 9.5 % (0.0-7.3) H 12/27/18 22:37 Eos % (Auto) 0.2 % (0.0-4.3) 12/27/18 22:37 Baso % (Auto) 0.9 % (0.0-1.8) 12/27/18 22:37 Lymph # 0.6 K/mm3 (1.2-5.4) L 12/27/18 22:37 [place] # 0.5 K/mm3 (0.0-0.8) 12/27/18 22:37 Eos # 0.0 K/mm3 (0.0-0.4) 12/27/18 22:37 Baso # 0.1 K/mm3 (0.0-0.1) 12/27/18 22:37 Seg Neutrophils % 78.1 % (40.0-70.0) H 12/27/18 22:37 Seg Neutrophils # 4.5 K/mm3 (1.8-7.7) 12/27/18 22:37 Sodium 136 mmol/L (137-145) L 12/27/18 22:37 Potassium 4.0 mmol/L (3.6-5.0) 12/27/18 22:37 Chloride 100.0 mmol/L (98-107) 12/27/18 22:37 Carbon Dioxide 23 mmol/L (22-30) 12/27/18 22:37 Anion Gap 17 mmol/L 12/27/18 22:37 BUN 9 mg/dL (7-17) 12/27/18 22:37 Creatinine 0.8 mg/dL (0.7-1.2) 12/27/18 22:37 Estimated GFR > 60 ml/min 12/27/18 22:37 BUN/Creatinine Ratio 11 % 12/27/18 22:37 Glucose 95 mg/dL (65-100) 12/27/18 22:37 Lactic Acid 1.90 mmol/L (0.7-2.0) 12/28/18 01:43 Calcium 8.9 mg/dL (8.4-10.2) 12/27/18 22:37 Total Creatine Kinase 250 units/L (30-135) H 12/28/18 03:18 CK-MB (CK-2) 3.7 ng/mL (0.0-4.0) 12/28/18 03:18 CK-MB (CK-2) Rel Index 1.4 (0-4) 12/28/18 03:18 Troponin T < 0.010 ng/mL (0.00-0.029) 12/28/18 03:18 NT-Pro-B Natriuret Pep 2231 pg/mL (0-900) H 12/27/18 22:37 Urine Color Yellow (Yellow) 12/27/18 01:10 Urine Turbidity Clear (Clear) 12/27/18 01:10 Urine pH 5.0 (5.0-7.0) 12/27/18 01:10 Ur Specific [place] 1.023 (1.003-1.030) 12/27/18 01:10 Urine Protein 100 mg/dl mg/dL (Negative) 12/27/18 01:10 Urine Glucose (UA) Neg mg/dL (Negative) 12/27/18 01:10 Urine Ketones 20 mg/dL (Negative) 12/27/18 01:10 Urine Blood Neg (Negative) 12/27/18 01:10 Urine Nitrite Neg (Negative) 12/27/18 01:10 Urine Bilirubin Neg (Negative) 12/27/18 01:10 Urine Urobilinogen < 2.0 mg/dL (<2.0) 12/27/18 01:10 Ur Leukocyte Esterase Neg (Negative) 12/27/18 01:10 Urine WBC (Auto) 3.0 /HPF (0.0-6.0) 12/27/18 01:10 Urine RBC (Auto) 1.0 /HPF (0.0-6.0) 12/27/18 01:10 U Epithel Cells (Auto) < 1.0 /HPF (0-13.0) 12/27/18 01:10 Urine Mucus Few /HPF 12/27/18 01:10
[2018-12-30] MEDS: SYNTHROID PO SCH (06:18)
[2018-12-30] MEDS: LASIX IV SCH ×2 (06:18→17:12)
[2018-12-30] MEDS: COZAAR PO SCH (09:58)
[2018-12-30] MEDS: COREG PO SCH ×2 (09:58→23:14)
[2018-12-30] MEDS: ALDACTONE PO SCH (09:59)
[2018-12-30] MEDS: HEPARIN SUB-Q SCH ×2 (09:59→23:14)
[2018-12-30] MEDS: ROCEPHIN/NS 1 GM/50 ML 1 GM/50 ML BAG IV SCH (09:59)
[2018-12-30] MEDS: ASPIRIN PO SCH (09:59)
--- NOTE | 2018-12-30 10:24 | Progress Note ---
Assessment and Plan Ischemic cardiomyopathy LVEF 30-35% Patent LAD and Cx stents by [facility] 2011 MPI revealed fixed anterior, anterolateral, lateral and septal wall defect, no ischemia 02/2014 Shortness of breath Bilateral pulmonary infiltrates on CXR Acute on chronic systolic heart failure Patient admits non-compliance with her diuretic therapy Patient admits gaining 16 lbs in weight Coronary artery disease s/p PCI to LAD and Cx Recommendations: Continue empiric antibiotic therapy Switch to po diuresis, lasix 40 mg po bid upon discharge Monitor Is and Os and renal function No further inpatient cardiac work-up is needed Subjective Date of service: 12/30/18 Principal diagnosis: Shortness of breath Interval history: Patient is feeling better Her shortness of breath has significantly improved Objective Vital Signs Temp Pulse Pulse Resp Resp BP Pulse Ox 12/30/18 08:44 99.0 F 111 H 20 129/70 95 12/30/18 05:07 98.6 F 108 H 17 139/77 91 12/30/18 00:01 99.6 F 106 H 17 118/67 90 12/30/18 00:00 102 H 12/29/18 20:01 100.0 F H 123 H 17 132/66 95 12/29/18 19:23 115 H 15 12/29/18 19:14 96 12/29/18 19:13 111 H 16 12/29/18 12:51 96 H 113/53 93 - Physical Examination General: No Apparent Distress HEENT: Positive: PERRL Neck: Positive: neck supple Cardiac: Positive: Reg Rate and Rhythm Lungs: Positive: Normal Exam Neuro: Positive: Grossly Intact Extremities: Present: +1 Edema
[2018-12-30] MEDS: ZITHROMAX 500 MG in NACL 0.9% 250ML 250 ML IV SCH (11:00)
--- NOTE | 2018-12-30 12:25 | Progress Note ---
Assessment and Plan Assessment and plan: Acute on chronic systolic heart failure. Lasix iv Coreg po Cardiology following Acute resp failure. On supplemental oxygen O2 sat 85% on room air today Ischemic Cardiomyopathy s/p AICD CAD s/p PCI Bilateral pneumonia. Cont Rocephin, Zithromax Hypthyroidsim. Levothyroxine DVT prophylaxis with Heparin Full code status Hopefully dc home in 1-2 days History Interval history: Still has shortness of breath. O2 sat 85% on room air today Hospitalist Physical - Physical exam Narrative exam: GEN: Not in acute distress, HEENT: Normocephalic, atraumatic, Neck: supple, No JVD Lungs: Bilateral crackles,no wheeze Heart:S1 and S2 regular, no murmurs, rubs or gallop, Abd:soft, non tender, non distended, normal bowel sounds Ext: No edema, no clubbing or cyanosis Neuro: AAO x 3, moves all extremities, no focal neurological signs - Constitutional Vitals: Temp Pulse Resp BP Pulse Ox 99.0 F 111 H 18 129/70 90 12/30/18 08:44 12/30/18 08:44 12/30/18 10:00 12/30/18 08:44 12/30/18 11:49 General appearance: Present: no acute distress Results - Labs CBC & Chem 7: 12/27/18 22:37 12/27/18 22:37 Labs: Laboratory Last Values WBC 5.7 K/mm3 (4.5-11.0) 12/27/18 22:37 RBC 3.63 M/mm3 (3.65-5.03) L 12/27/18 22:37 Hgb 12.5 gm/dl (10.1-14.3) 12/27/18 22:37 Hct 38.0 % (30.3-42.9) 12/27/18 22:37 MCV 105 fl (79-97) H 12/27/18 22:37 MCH 34 pg (28-32) H 12/27/18 22:37 MCHC 33 % (30-34) 12/27/18 22:37 RDW 15.7 % (13.2-15.2) H 12/27/18 22:37 Plt Count 153 K/mm3 (140-440) 12/27/18 22:37 Lymph % (Auto) 11.3 % (13.4-35.0) L 12/27/18 22:37 [place] % (Auto) 9.5 % (0.0-7.3) H 12/27/18 22:37 Eos % (Auto) 0.2 % (0.0-4.3) 12/27/18 22:37 Baso % (Auto) 0.9 % (0.0-1.8) 12/27/18 22:37 Lymph # 0.6 K/mm3 (1.2-5.4) L 12/27/18 22:37 [place] # 0.5 K/mm3 (0.0-0.8) 12/27/18 22:37 Eos # 0.0 K/mm3 (0.0-0.4) 12/27/18 22:37 Baso # 0.1 K/mm3 (0.0-0.1) 12/27/18 22:37 Seg Neutrophils % 78.1 % (40.0-70.0) H 12/27/18 22:37 Seg Neutrophils # 4.5 K/mm3 (1.8-7.7) 12/27/18 22:37 Sodium 136 mmol/L (137-145) L 12/27/18 22:37 Potassium 4.0 mmol/L (3.6-5.0) 12/27/18 22:37 Chloride 100.0 mmol/L (98-107) 12/27/18 22:37 Carbon Dioxide 23 mmol/L (22-30) 12/27/18 22:37 Anion Gap 17 mmol/L 12/27/18 22:37 BUN 9 mg/dL (7-17) 12/27/18 22:37 Creatinine 0.8 mg/dL (0.7-1.2) 12/27/18 22:37 Estimated GFR > 60 ml/min 12/27/18 22:37 BUN/Creatinine Ratio 11 % 12/27/18 22:37 Glucose 95 mg/dL (65-100) 12/27/18 22:37 Lactic Acid 1.90 mmol/L (0.7-2.0) 12/28/18 01:43 Calcium 8.9 mg/dL (8.4-10.2) 12/27/18 22:37 Total Creatine Kinase 250 units/L (30-135) H 12/28/18 03:18 CK-MB (CK-2) 3.7 ng/mL (0.0-4.0) 12/28/18 03:18 CK-MB (CK-2) Rel Index 1.4 (0-4) 12/28/18 03:18 Troponin T < 0.010 ng/mL (0.00-0.029) 12/28/18 03:18 NT-Pro-B Natriuret Pep 2231 pg/mL (0-900) H 12/27/18 22:37 Urine Color Yellow (Yellow) 12/27/18 01:10 Urine Turbidity Clear (Clear) 12/27/18 01:10 Urine pH 5.0 (5.0-7.0) 12/27/18 01:10 Ur Specific [place] 1.023 (1.003-1.030) 12/27/18 01:10 Urine Protein 100 mg/dl mg/dL (Negative) 12/27/18 01:10 Urine Glucose (UA) Neg mg/dL (Negative) 12/27/18 01:10 Urine Ketones 20 mg/dL (Negative) 12/27/18 01:10 Urine Blood Neg (Negative) 12/27/18 01:10 Urine Nitrite Neg (Negative) 12/27/18 01:10 Urine Bilirubin Neg (Negative) 12/27/18 01:10 Urine Urobilinogen < 2.0 mg/dL (<2.0) 12/27/18 01:10 Ur Leukocyte Esterase Neg (Negative) 12/27/18 01:10 Urine WBC (Auto) 3.0 /HPF (0.0-6.0) 12/27/18 01:10 Urine RBC (Auto) 1.0 /HPF (0.0-6.0) 12/27/18 01:10 U Epithel Cells (Auto) < 1.0 /HPF (0-13.0) 12/27/18 01:10 Urine Mucus Few /HPF 12/27/18 01:10
[2018-12-30] MEDS: PROVENTIL IH PRN (20:43)
[2018-12-31] MEDS: LASIX IV SCH ×2 (07:07→17:52)
[2018-12-31] MEDS: SYNTHROID PO SCH (07:08)
[2018-12-31] MEDS: ASPIRIN PO SCH (09:15)
--- NOTE | 2018-12-31 09:15 | Progress Note ---
Assessment and Plan Ischemic cardiomyopathy LVEF 30-35% Patent LAD and Cx stents by [facility] 2011 MPI revealed fixed anterior, anterolateral, lateral and septal wall defect, no ischemia 02/2014 Shortness of breath Bilateral pulmonary infiltrates on CXR Left sided crackles on exam Acute on chronic systolic heart failure Patient admits non-compliance with her diuretic therapy Patient admits gaining 16 lbs in weight Coronary artery disease s/p PCI to LAD and Cx Recommendations: Continue empiric antibiotic therapy Switch to po diuresis, lasix 40 mg po bid upon discharge Monitor Is and Os and renal function No further inpatient cardiac work-up is needed Subjective Date of service: 12/31/18 Principal diagnosis: Shortness of breath Interval history: Patient continues to require oxygen supplementation Objective Vital Signs Temp Pulse Pulse Resp Resp BP Pulse Ox 12/31/18 07:50 97.6 F 95 H 16 111/62 89 12/31/18 05:01 99.9 F H 97 H 22 112/54 90 12/30/18 23:14 107 H 111/56 12/30/18 22:00 89 12/30/18 20:53 112 H 18 12/30/18 20:43 104 H 18 12/30/18 20:39 94 12/30/18 20:15 103 H 12/30/18 19:59 98.6 F 103 H 20 126/67 82 L 12/30/18 17:32 98.4 F 107 H 28 H 144/76 86 12/30/18 12:45 96 H 18 87/43 81 L 12/30/18 11:49 90 12/30/18 10:00 18 93 - Physical Examination General: No Apparent Distress HEENT: Positive: PERRL Neck: Positive: neck supple Cardiac: Positive: Reg Rate and Rhythm Lungs: Positive: Decreased Breath Sounds, Rales Neuro: Positive: Grossly Intact Extremities: Present: +1 Edema
[2018-12-31] MEDS: ALDACTONE PO SCH (09:21)
[2018-12-31] MEDS: COREG PO SCH ×2 (09:21→22:12)
[2018-12-31] MEDS: ROCEPHIN/NS 1 GM/50 ML 1 GM/50 ML BAG IV SCH (09:22)
[2018-12-31] MEDS: ZITHROMAX 500 MG in NACL 0.9% 250ML 250 ML IV SCH (09:22)
[2018-12-31] MEDS: COZAAR PO SCH (09:23)
[2018-12-31] MEDS: HEPARIN SUB-Q SCH ×2 (09:24→22:13)
[2018-12-31 10:37] LABS: Hematocrit 35.4 % (30.3-42.9); Hemoglobin 11.8 gm/dl (10.1-14.3); Mean Corpuscular HGB Conc 34 % (30-34); Mean Corpuscular Volume 102 fl (79-97); Red Blood Count 3.48 M/mm3 (3.65-5.03); Red Cell Distribution Width 15.2 % (13.2-15.2)
[2018-12-31 11:02] LABS: Calcium 8.3 mg/dL (8.4-10.2)
--- NOTE | 2018-12-31 12:18 | XRay Report ---
FINAL REPORT EXAM: XR CHEST 1V AP HISTORY: Pneumonia, CHF, shortness of breath TECHNIQUE: Chest, portable PRIORS: 12/27/2018 FINDINGS: There is unchanged borderline cardiomegaly. There unchanged bilateral patchy infiltrates, left more than right. There is no pneumothorax. There is no pleural fluid. Pacemaker projects on the left. IMPRESSION: Unchanged infiltrates
[2018-12-31 12:30] LABS: Platelet Count 140 K/mm3 (140-440)
--- NOTE | 2018-12-31 12:41 | Progress Note ---
Assessment and Plan Assessment and plan: Acute on chronic systolic heart failure. Lasix iv Coreg po Cardiology following Acute resp failure. Still has shortness of breath On supplemental oxygen O2 sat 85% on room air yesterday Repeat CXR today, ABG Consult Pulm Ischemic Cardiomyopathy s/p AICD CAD s/p PCI Bilateral pneumonia. Cont Rocephin, Zithromax Hypthyroidsim. Levothyroxine DVT prophylaxis with Heparin Full code status History Interval history: Still has shortness of breath. O2 sat 85% on room air yesterday Hospitalist Physical - Physical exam Narrative exam: GEN: Not in acute distress, HEENT: Normocephalic, atraumatic, Neck: supple, No JVD Lungs: Bilateral crackles,no wheeze Heart:S1 and S2 regular, no murmurs, rubs or gallop, Abd:soft, non tender, non distended, normal bowel sounds Ext: No edema, no clubbing or cyanosis Neuro: AAO x 3, moves all extremities, no focal neurological signs - Constitutional Vitals: Temp Pulse Resp BP Pulse Ox 97.6 F 69 16 97/47 95 12/31/18 07:50 12/31/18 09:23 12/31/18 07:50 12/31/18 09:23 12/31/18 10:00 General appearance: Present: no acute distress Results - Labs CBC & Chem 7: 12/31/18 10:09 12/31/18 10:09 Labs: Laboratory Last Values WBC 5.9 K/mm3 (4.5-11.0) 12/31/18 10:09 RBC 3.48 M/mm3 (3.65-5.03) L 12/31/18 10:09 Hgb 11.8 gm/dl (10.1-14.3) 12/31/18 10:09 Hct 35.4 % (30.3-42.9) 12/31/18 10:09 MCV 102 fl (79-97) H 12/31/18 10:09 MCH 34 pg (28-32) H 12/31/18 10:09 MCHC 34 % (30-34) 12/31/18 10:09 RDW 15.2 % (13.2-15.2) 12/31/18 10:09 Plt Count 140 K/mm3 (140-440) 12/31/18 10:09 Lymph % (Auto) 11.3 % (13.4-35.0) L 12/27/18 22:37 [place] % (Auto) 9.5 % (0.0-7.3) H 12/27/18 22:37 Eos % (Auto) 0.2 % (0.0-4.3) 12/27/18 22:37 Baso % (Auto) 0.9 % (0.0-1.8) 12/27/18 22:37 Lymph # 0.6 K/mm3 (1.2-5.4) L 12/27/18 22:37 [place] # 0.5 K/mm3 (0.0-0.8) 12/27/18 22:37 Eos # 0.0 K/mm3 (0.0-0.4) 12/27/18 22:37 Baso # 0.1 K/mm3 (0.0-0.1) 12/27/18 22:37 Seg Neutrophils % 78.1 % (40.0-70.0) H 12/27/18 22:37 Seg Neutrophils # 4.5 K/mm3 (1.8-7.7) 12/27/18 22:37 POC ABG pH 7.467 (7.35-7.45) H 12/31/18 10:15 POC ABG pCO2 45.8 (35-45) H 12/31/18 10:15 POC ABG pO2 72 (80-105) L 12/31/18 10:15 POC ABG HCO3 33.1 12/31/18 10:15 POC ABG Total CO2 34 12/31/18 10:15 POC ABG O2 Sat 95 12/31/18 10:15 POC ABG Base Excess 9 12/31/18 10:15 FiO2 4 % 12/31/18 10:15 Sodium 136 mmol/L (137-145) L 12/31/18 10:09 Potassium 3.7 mmol/L (3.6-5.0) 12/31/18 10:09 Chloride 91.2 mmol/L (98-107) L 12/31/18 10:09 Carbon Dioxide 29 mmol/L (22-30) 12/31/18 10:09 Anion Gap 20 mmol/L 12/31/18 10:09 BUN 23 mg/dL (7-17) H 12/31/18 10:09 Creatinine 1.1 mg/dL (0.7-1.2) 12/31/18 10:09 Estimated GFR 50 ml/min 12/31/18 10:09 BUN/Creatinine Ratio 21 % 12/31/18 10:09 Glucose 107 mg/dL (65-100) H 12/31/18 10:09 Lactic Acid 1.90 mmol/L (0.7-2.0) 12/28/18 01:43 Calcium 8.3 mg/dL (8.4-10.2) L 12/31/18 10:09 Total Creatine Kinase 250 units/L (30-135) H 12/28/18 03:18 CK-MB (CK-2) 3.7 ng/mL (0.0-4.0) 12/28/18 03:18 CK-MB (CK-2) Rel Index 1.4 (0-4) 12/28/18 03:18 Troponin T < 0.010 ng/mL (0.00-0.029) 12/28/18 03:18 NT-Pro-B Natriuret Pep 2231 pg/mL (0-900) H 12/27/18 22:37 Urine Color Yellow (Yellow) 12/27/18 01:10 Urine Turbidity Clear (Clear) 12/27/18 01:10 Urine pH 5.0 (5.0-7.0) 12/27/18 01:10 Ur Specific [place] 1.023 (1.003-1.030) 12/27/18 01:10 Urine Protein 100 mg/dl mg/dL (Negative) 12/27/18 01:10 Urine Glucose (UA) Neg mg/dL (Negative) 12/27/18 01:10 Urine Ketones 20 mg/dL (Negative) 12/27/18 01:10 Urine Blood Neg (Negative) 12/27/18 01:10 Urine Nitrite Neg (Negative) 12/27/18 01:10 Urine Bilirubin Neg (Negative) 12/27/18 01:10 Urine Urobilinogen < 2.0 mg/dL (<2.0) 12/27/18 01:10 Ur Leukocyte Esterase Neg (Negative) 12/27/18 01:10 Urine WBC (Auto) 3.0 /HPF (0.0-6.0) 12/27/18 01:10 Urine RBC (Auto) 1.0 /HPF (0.0-6.0) 12/27/18 01:10 U Epithel Cells (Auto) < 1.0 /HPF (0-13.0) 12/27/18 01:10 Urine Mucus Few /HPF 12/27/18 01:10
[2018-12-31] MEDS: ROBITUSSIN PO PRN (15:12)
[2019-01-01] MEDS: LASIX IV SCH ×2 (06:02→17:29)
[2019-01-01] MEDS: SYNTHROID PO SCH (06:02)
[2019-01-01 06:08] LABS: Hematocrit 34.7 % (30.3-42.9); Hemoglobin 11.5 gm/dl (10.1-14.3); Mean Corpuscular HGB Conc 33 % (30-34); Mean Corpuscular Volume 102 fl (79-97); Platelet Count 156 K/mm3 (140-440); Red Cell Distribution Width 14.9 % (13.2-15.2)
[2019-01-01 06:31] LABS: BUN/Creatinine Ratio 19; Blood Urea Nitrogen 17 mg/dL (7-17); Calcium 8.4 mg/dL (8.4-10.2); Hemolysis Index 32
[2019-01-01] MEDS: K-DUR PO SCH ×2 (08:25→15:23)
[2019-01-01] MEDS: ALDACTONE PO SCH (09:47)
[2019-01-01] MEDS: ZITHROMAX 500 MG in NACL 0.9% 250ML 250 ML IV SCH (09:48)
[2019-01-01] MEDS: ROCEPHIN/NS 1 GM/50 ML 1 GM/50 ML BAG IV SCH (09:48)
[2019-01-01] MEDS: COREG PO SCH ×2 (09:48→22:53)
[2019-01-01] MEDS: ASPIRIN PO SCH (09:48)
[2019-01-01] MEDS: HEPARIN SUB-Q SCH ×2 (09:49→22:52)
[2019-01-01] MEDS: COZAAR PO SCH (09:49)
--- NOTE | 2019-01-01 10:14 | Progress Note ---
Addendum entered and electronically signed by RADU TANG MD 01/01/19 19:04: Medical therapy for heart failure, chronic left ventricle systolic dysfunction, coronary artery disease. Original Note: Assessment and Plan Acute systolic heart failure patient admits non-compliance with her diuretic therapy Shortness of breath Bilateral pulmonary infiltrates on CXR Hx of Ischemic CMP LVEF 30-35% Patent LAD and Cx stents by [facility] 2011 MPI revealed fixed anterior, anterolateral, lateral and septal wall defect, no ischemia 02/2014 Hx of CAD Presence of AICD Recommendations: Aggressive medical therapy for heart failure to include IV diuretics, beta blockers, afterload reduction agents and low dose aspirin. Continue medical therapy for coronary artery disease. Fluid/Sodium restriction. Daily weight. Subjective Date of service: 01/01/19 Principal diagnosis: Shortness of breath Interval history: Patient reports shortness of breath with minimal exertion. Still requiring oxygen supplementation. Currently on 4liters of O2. Objective Vital Signs Temp Pulse Pulse Resp Resp BP BP 01/01/19 09:49 99 H 113/54 01/01/19 09:48 99 H 113/54 01/01/19 09:47 99 H 113/54 01/01/19 07:28 98.3 F 85 20 119/61 01/01/19 05:50 98.5 F 90 22 117/61 01/01/19 00:14 98.3 F 85 22 121/68 12/31/18 22:12 88 122/63 12/31/18 22:00 85 17 12/31/18 20:47 17 12/31/18 20:05 98.5 F 88 22 122/63 12/31/18 19:22 87 12/31/18 17:47 97.9 F 90 19 121/59 12/31/18 12:10 91 H 121/61 12/31/18 12:00 98.2 F Pulse Ox 01/01/19 09:49 01/01/19 09:48 01/01/19 09:47 01/01/19 07:28 93 01/01/19 05:50 96 01/01/19 00:14 96 12/31/18 22:12 12/31/18 22:00 98 12/31/18 20:47 12/31/18 20:05 94 12/31/18 19:22 12/31/18 17:47 4 L 12/31/18 12:10 93 12/31/18 12:00 - Physical Examination General: No Apparent Distress HEENT: Positive: PERRL Neck: Positive: trachea midline Cardiac: Positive: Reg Rate and Rhythm Lungs: Positive: Decreased Breath Sounds Neuro: Positive: Grossly Intact Extremities: Present: +1 Edema - Labs and Meds CBC 12/31/18 01/01/19 Range/Units 10:09 04:37 WBC 5.9 4.4 L (4.5-11.0) K/mm3 RBC 3.48 L 3.40 L (3.65-5.03) M/mm3 Hgb 11.8 11.5 (10.1-14.3) gm/dl Hct 35.4 34.7 (30.3-42.9) % Plt Count 140 156 (140-440) K/mm3 Comprehensive Metabolic Panel 12/31/18 01/01/19 Range/Units 10:09 04:37 Sodium 136 L 140 (137-145) mmol/L Potassium 3.7 3.3 L (3.6-5.0) mmol/L Chloride 91.2 L 93.4 L (98-107) mmol/L Carbon Dioxide 29 32 H (22-30) mmol/L BUN 23 H 17 (7-17) mg/dL Creatinine 1.1 0.9 (0.7-1.2) mg/dL Glucose 107 H 91 (65-100) mg/dL Calcium 8.3 L 8.4 (8.4-10.2) mg/dL
--- NOTE | 2019-01-01 14:49 | Progress Note ---
Assessment and Plan Assessment and plan: Acute on chronic systolic heart failure. Lasix iv Coreg po Cardiology following Acute resp failure. Still has shortness of breath On supplemental oxygen O2 sat 85% on room air few days ago Consulted Pulm Ischemic Cardiomyopathy s/p AICD CAD s/p PCI Bilateral pneumonia. Cont Rocephin, Zithromax Repeat CXR unchanged Hypthyroidsim. Levothyroxine DVT prophylaxis with Heparin may need home Oxygen Full code status History Interval history: Still has shortness of breath. O2 sat 85% on room air No chest pain Hospitalist Physical - Physical exam Narrative exam: GEN: Not in acute distress, HEENT: Normocephalic, atraumatic, Neck: supple, No JVD Lungs: Bilateral crackles,no wheeze Heart:S1 and S2 regular, no murmurs, rubs or gallop, Abd:soft, non tender, non distended, normal bowel sounds Ext: No edema, no clubbing or cyanosis Neuro: AAO x 3, moves all extremities, no focal neurological signs - Constitutional Vitals: Temp Pulse Resp BP Pulse Ox 98.3 F 88 19 108/62 98 01/01/19 07:28 01/01/19 11:41 01/01/19 10:00 01/01/19 11:41 01/01/19 12:25 General appearance: Present: no acute distress Results - Labs CBC & Chem 7: 01/01/19 04:37 01/01/19 04:37 Labs: Laboratory Last Values WBC 4.4 K/mm3 (4.5-11.0) L 01/01/19 04:37 RBC 3.40 M/mm3 (3.65-5.03) L 01/01/19 04:37 Hgb 11.5 gm/dl (10.1-14.3) 01/01/19 04:37 Hct 34.7 % (30.3-42.9) 01/01/19 04:37 MCV 102 fl (79-97) H 01/01/19 04:37 MCH 34 pg (28-32) H 01/01/19 04:37 MCHC 33 % (30-34) 01/01/19 04:37 RDW 14.9 % (13.2-15.2) 01/01/19 04:37 Plt Count 156 K/mm3 (140-440) 01/01/19 04:37 Lymph % (Auto) 11.3 % (13.4-35.0) L 12/27/18 22:37 [place] % (Auto) 9.5 % (0.0-7.3) H 12/27/18 22:37 Eos % (Auto) 0.2 % (0.0-4.3) 12/27/18 22:37 Baso % (Auto) 0.9 % (0.0-1.8) 12/27/18 22:37 Lymph # 0.6 K/mm3 (1.2-5.4) L 12/27/18 22:37 [place] # 0.5 K/mm3 (0.0-0.8) 12/27/18 22:37 Eos # 0.0 K/mm3 (0.0-0.4) 12/27/18 22:37 Baso # 0.1 K/mm3 (0.0-0.1) 12/27/18 22:37 Seg Neutrophils % 78.1 % (40.0-70.0) H 12/27/18 22:37 Seg Neutrophils # 4.5 K/mm3 (1.8-7.7) 12/27/18 22:37 POC ABG pH 7.467 (7.35-7.45) H 12/31/18 10:15 POC ABG pCO2 45.8 (35-45) H 12/31/18 10:15 POC ABG pO2 72 (80-105) L 12/31/18 10:15 POC ABG HCO3 33.1 12/31/18 10:15 POC ABG Total CO2 34 12/31/18 10:15 POC ABG O2 Sat 95 12/31/18 10:15 POC ABG Base Excess 9 12/31/18 10:15 FiO2 4 % 12/31/18 10:15 Sodium 140 mmol/L (137-145) 01/01/19 04:37 Potassium 3.3 mmol/L (3.6-5.0) L 01/01/19 04:37 Chloride 93.4 mmol/L (98-107) L 01/01/19 04:37 Carbon Dioxide 32 mmol/L (22-30) H 01/01/19 04:37 Anion Gap 18 mmol/L 01/01/19 04:37 BUN 17 mg/dL (7-17) 01/01/19 04:37 Creatinine 0.9 mg/dL (0.7-1.2) 01/01/19 04:37 Estimated GFR > 60 ml/min 01/01/19 04:37 BUN/Creatinine Ratio 19 % 01/01/19 04:37 Glucose 91 mg/dL (65-100) 01/01/19 04:37 Lactic Acid 1.90 mmol/L (0.7-2.0) 12/28/18 01:43 Calcium 8.4 mg/dL (8.4-10.2) 01/01/19 04:37 Total Creatine Kinase 250 units/L (30-135) H 12/28/18 03:18 CK-MB (CK-2) 3.7 ng/mL (0.0-4.0) 12/28/18 03:18 CK-MB (CK-2) Rel Index 1.4 (0-4) 12/28/18 03:18 Troponin T < 0.010 ng/mL (0.00-0.029) 12/28/18 03:18 NT-Pro-B Natriuret Pep 2231 pg/mL (0-900) H 12/27/18 22:37 Urine Color Yellow (Yellow) 12/27/18 01:10 Urine Turbidity Clear (Clear) 12/27/18 01:10 Urine pH 5.0 (5.0-7.0) 12/27/18 01:10 Ur Specific [place] 1.023 (1.003-1.030) 12/27/18 01:10 Urine Protein 100 mg/dl mg/dL (Negative) 12/27/18 01:10 Urine Glucose (UA) Neg mg/dL (Negative) 12/27/18 01:10 Urine Ketones 20 mg/dL (Negative) 12/27/18 01:10 Urine Blood Neg (Negative) 12/27/18 01:10 Urine Nitrite Neg (Negative) 12/27/18 01:10 Urine Bilirubin Neg (Negative) 12/27/18 01:10 Urine Urobilinogen < 2.0 mg/dL (<2.0) 12/27/18 01:10 Ur Leukocyte Esterase Neg (Negative) 12/27/18 01:10 Urine WBC (Auto) 3.0 /HPF (0.0-6.0) 12/27/18 01:10 Urine RBC (Auto) 1.0 /HPF (0.0-6.0) 12/27/18 01:10 U Epithel Cells (Auto) < 1.0 /HPF (0-13.0) 12/27/18 01:10 Urine Mucus Few /HPF 12/27/18 01:10
--- NOTE | 2019-01-01 19:34 | Consultation ---
History of Present Illness Consult date: 01/01/19 Requesting physician: FRANSISCO CENTENO Reason for consult: dyspnea History of present illness: 63 yo admitted with increased SOB, wheezing, fever, cough. Feeling better with ABX and IV Lasix, but still SYED above baseline. Requiring supplemental O2 by NC, 2L. No further fevers. No chest pain, hemoptysis. Active Medications Acetaminophen (Tylenol) 650 mg PO Q4H PRN PRN Reason: Fever >101 Last Admin: 12/29/18 01:35 Dose: 650 mg Documented by: Albuterol/Ipratropium (Duoneb *Not For Prn Use*) 1 ampul IH QIDRT [facility] Aspirin (Aspirin) 325 mg PO QDAY [facility] Last Admin: 01/01/19 09:48 Dose: 325 mg Documented by: Carvedilol (Coreg) 3.125 mg PO BID [facility] Last Admin: 01/01/19 09:48 Dose: 3.125 mg Documented by: Diphenhydramine HCl (Benadryl) 25 mg PO Q8H PRN PRN Reason: Allergy Symptoms Last Admin: 12/28/18 23:01 Dose: 25 mg Documented by: Furosemide (Lasix) 40 mg IV 0600,1800 [facility] Last Admin: 01/01/19 17:29 Dose: 40 mg Documented by: Guaifenesin (Robitussin) 200 mg PO Q4H PRN PRN Reason: Cough Last Admin: 12/31/18 15:12 Dose: 200 mg Documented by: Heparin Sodium (Porcine) (Heparin) 5,000 unit SUB-Q Q12HR [facility] Last Admin: 01/01/19 09:49 Dose: 5,000 unit Documented by: Azithromycin 500 mg/ Sodium (Chloride) 250 mls @ 250 mls/hr IV Q24HR [facility] Last Admin: 01/01/19 09:48 Dose: 250 mls/hr Documented by: Ceftriaxone Sodium (Rocephin/Ns 1 Gm/50 Ml) 1 gm in 50 mls @ 100 mls/hr IV Q24HR [facility]; Protocol Last Admin: 01/01/19 09:48 Dose: 100 mls/hr Documented by: Levothyroxine Sodium (Synthroid) 75 mcg PO QAM@0600 [facility] Last Admin: 01/01/19 06:02 Dose: 75 mcg Documented by: Losartan Potassium (Cozaar) 25 mg PO QDAY [facility] Last Admin: 01/01/19 09:49 Dose: Not Given Documented by: Ondansetron HCl (Zofran) 4 mg IV Q8H PRN PRN Reason: Nausea And Vomiting Last Admin: 12/30/18 09:15 Dose: 4 mg Documented by: Senna (Senokot) 8.6 mg PO BID PRN PRN Reason: Constipation Spironolactone (Aldactone) 25 mg PO QDAY [facility] Last Admin: 01/01/19 09:47 Dose: 25 mg Documented by: Past History Past Medical History: other (CAD, HTN) Past Surgical History: PTCA Social history: full code. denies: smoking, alcohol abuse, prescription drug abuse, IV drug use Family history: other (No pulm issues reported) Medications and Allergies Allergies Allergy/AdvReac Type Severity Reaction Status Date / Time No Known Allergies Allergy Verified 03/05/14 18:10 Home Medications Medication Instructions Recorded Confirmed Last Taken Type Acetaminophen [Acetaminophen TAB] 500 mg PO PRN PRN 03/05/14 12/28/18 12/07/18 20:00 History Aspirin [Aspirin TAB] 325 mg PO QDAY 03/05/14 12/28/18 11/16/18 09:00 History Carvedilol [Coreg] 3.125 mg PO BID 03/05/14 12/28/18 12/27/18 21:00 History Levothyroxine [Synthroid] 75 mcg PO QAM 03/05/14 12/28/18 12/27/18 06:00 History Losartan [Cozaar] 25 mg PO QDAY 03/05/14 12/28/18 12/27/18 21:00 History Sennosides [Senokot] 1 tab PO PRN PRN 03/05/14 12/28/18 11/17/18 21:00 History diphenhydrAMINE [Benadryl CAP] 25 mg PO Q8HR PRN 03/05/14 12/28/18 11/16/18 20:00 History guaiFENesin/DEXTROMETHORPHAN 1 tab PO PRN PRN 03/05/14 12/28/18 12/28/18 02:00 History [Mucinex DM ER 600-30 mg TAB] ALBUTEROL Inhaler (OR & NICU) 2 puff IH QID PRN #1 inhalation 12/25/18 12/28/18 12/28/18 02:00 Rx [ProAir HFA Inhaler] Benzonatate [Tessalon Perles] 100 mg PO Q8HR #10 capsule 12/25/18 12/28/18 12/27/18 02:00 Rx Ondansetron [Zofran Odt] 4 mg PO Q8HR PRN #10 tab.rapdis 12/25/18 12/28/18 11/21/18 20:00 Rx levoFLOXacin [Levaquin TAB] 500 mg PO QDAY #10 tablet 12/25/18 12/28/18 12/28/18 02:00 Rx Carvedilol 3.125 mg PO BID 12/28/18 12/28/18 12/21/18 09:00 History Famotidine 40 mg PO BID 12/28/18 12/28/18 12/27/18 21:00 History Furosemide 40 mg PO DAILY 12/28/18 12/28/18 12/28/18 03:00 History Klor-Con 10 10 meq PO DAILY 12/28/18 12/28/18 12/26/18 09:00 History amLODIPine 2.5 mg PO DAILY PRN 12/28/18 12/28/18 12/05/18 22:00 History Active Meds: Active Medications Acetaminophen (Tylenol) 650 mg PO Q4H PRN PRN Reason: Fever >101 Last Admin: 12/29/18 01:35 Dose: 650 mg Documented by: Albuterol/Ipratropium (Duoneb *Not For Prn Use*) 1 ampul QIDRT [facility] Aspirin (Aspirin) 325 mg PO QDAY [facility] Last Admin: 01/01/19 09:48 Dose: 325 mg Documented by: Carvedilol (Coreg) 3.125 mg PO BID [facility] Last Admin: 01/01/19 09:48 Dose: 3.125 mg Documented by: Diphenhydramine HCl (Benadryl) 25 mg PO Q8H PRN PRN Reason: Allergy Symptoms Last Admin: 12/28/18 23:01 Dose: 25 mg Documented by: Furosemide (Lasix) 40 mg IV 0600,1800 [facility] Last Admin: 01/01/19 17:29 Dose: 40 mg Documented by: Guaifenesin (Robitussin) 200 mg PO Q4H PRN PRN Reason: Cough Last Admin: 12/31/18 15:12 Dose: 200 mg Documented by: Heparin Sodium (Porcine) (Heparin) 5,000 unit SUB-Q Q12HR [facility] Last Admin: 01/01/19 09:49 Dose: 5,000 unit Documented by: Azithromycin 500 mg/ Sodium (Chloride) 250 mls @ 250 mls/hr IV Q24HR [facility] Last Admin: 01/01/19 09:48 Dose: 250 mls/hr Documented by: Ceftriaxone Sodium (Rocephin/Ns 1 Gm/50 Ml) 1 gm in 50 mls @ 100 mls/hr IV Q24HR [facility]; Protocol Last Admin: 01/01/19 09:48 Dose: 100 mls/hr Documented by: Levothyroxine Sodium (Synthroid) 75 mcg PO QAM@0600 [facility] Last Admin: 01/01/19 06:02 Dose: 75 mcg Documented by: Losartan Potassium (Cozaar) 25 mg PO QDAY [facility] Last Admin: 01/01/19 09:49 Dose: Not Given Documented by: Ondansetron HCl (Zofran) 4 mg IV Q8H PRN PRN Reason: Nausea And Vomiting Last Admin: 12/30/18 09:15 Dose: 4 mg Documented by: Senna (Senokot) 8.6 mg PO BID PRN PRN Reason: Constipation Spironolactone (Aldactone) 25 mg PO QDAY [facility] Last Admin: 01/01/19 09:47 Dose: 25 mg Documented by: Review of Systems All systems: negative Physical Examination Vital signs: Vital Signs Temp Pulse BP Pulse Ox 100 F H 126 H 163/82 86 12/27/18 22:09 12/27/18 22:09 12/27/18 22:09 12/27/18 22:09 General appearance: no acute distress, alert Eyes: non-icteric ENT: oropharynx moist Neck: supple Effort: normal Ascultation: Bilateral: rales (bases) Cardiovascular: regular rate and rhythm (no mrg) Gastrointestinal: normoactive bowel sounds, soft, non-tender, non-distended Integumentary: normal Extremities: no cyanosis, no edema, pink and warm Musculoskeletal: no deformities normal mental status, non-focal exam, pupils equal and round, CN II-XII normal mood appropriate, affect normal Results - Laboratory Findings CBC and BMP: 01/01/19 04:37 01/01/19 04:37 ABG POC ABG pH 7.467 (7.35-7.45) H 12/31/18 10:15 POC ABG pCO2 45.8 (35-45) H 12/31/18 10:15 POC ABG pO2 72 (80-105) L 12/31/18 10:15 POC ABG HCO3 33.1 12/31/18 10:15 POC ABG Total CO2 34 12/31/18 10:15 POC ABG O2 Sat 95 12/31/18 10:15 Abnormal lab findings: Abnormal Labs 12/27/18 12/27/18 12/28/18 22:37 22:37 03:18 WBC RBC 3.63 L MCV 105 H MCH 34 H RDW 15.7 H Lymph % (Auto) 11.3 L [place] % (Auto) 9.5 H Lymph # 0.6 L Seg Neutrophils % 78.1 H POC ABG pH POC ABG pCO2 POC ABG pO2 Sodium 136 L Potassium Chloride Carbon Dioxide BUN Glucose Calcium Total Creatine Kinase 250 H NT-Pro-B Natriuret Pep 2231 H 12/31/18 12/31/18 12/31/18 10:09 10:09 10:15 WBC RBC 3.48 L MCV 102 H MCH 34 H RDW Lymph % (Auto) [place] % (Auto) Lymph # Seg Neutrophils % POC ABG pH 7.467 H POC ABG pCO2 45.8 H POC ABG pO2 72 L Sodium 136 L Potassium Chloride 91.2 L Carbon Dioxide BUN 23 H Glucose 107 H Calcium 8.3 L Total Creatine Kinase NT-Pro-B Natriuret Pep 01/01/19 01/01/19 04:37 04:37 WBC 4.4 L RBC 3.40 L MCV 102 H MCH 34 H RDW Lymph % (Auto) [place] % (Auto) Lymph # Seg Neutrophils % POC ABG pH POC ABG pCO2 POC ABG pO2 Sodium Potassium 3.3 L Chloride 93.4 L Carbon Dioxide 32 H BUN Glucose Calcium Total Creatine Kinase NT-Pro-B Natriuret Pep - Diagnostic Findings Chest x-ray: report reviewed, image reviewed Assessment and Plan Imp: 1. Pneumonia; cannot r/o influenza 2. A/C systolic CHF 3. ICMP 4. CAD 5. Acute respiratory failure, hypoxia 6. Pulm HTN 2/2 LV dysfunction Rec: 1. Cont. empiric ABX for pneumonia 2. Cont. Lasix 3. Patient feels nebs help her but does not want to ask for them, so will schedule QID 4. F/u CXR periodically to ensure improvement 5. Wean O2 to off, keeping sats 88% or > 6. Further plans pending clinical course Plan of care reviewed w/ patient, she understands/agrees Thx for the consult. Will follow w/ you.
[2019-01-01] MEDS: DUONEB *Not for PRN Use IH SCH (21:04)
[2019-01-02] MEDS: LASIX IV SCH ×2 (06:19→17:10)
[2019-01-02] MEDS: SYNTHROID PO SCH (06:19)
[2019-01-02] MEDS: DUONEB *Not for PRN Use IH SCH ×5 (07:48→19:13)
[2019-01-02 08:06] LABS: BUN/Creatinine Ratio 15; Blood Urea Nitrogen 12 mg/dL (7-17); Calcium 8.7 mg/dL (8.4-10.2); Hemolysis Index 8
[2019-01-02] MEDS: HEPARIN SUB-Q SCH ×2 (09:25→22:04)
[2019-01-02] MEDS: BENADRYL PO PRN (09:25)
[2019-01-02] MEDS: ASPIRIN PO SCH (09:25)
[2019-01-02] MEDS: ALDACTONE PO SCH (09:25)
[2019-01-02] MEDS: COREG PO SCH ×2 (09:25→22:04)
[2019-01-02] MEDS: COZAAR PO SCH (09:25)
[2019-01-02] MEDS: ZITHROMAX 500 MG in NACL 0.9% 250ML 250 ML IV SCH (09:35)
[2019-01-02] MEDS: ROCEPHIN/NS 1 GM/50 ML 1 GM/50 ML BAG IV SCH (09:35)
--- NOTE | 2019-01-02 10:34 | Progress Note ---
Addendum entered and electronically signed by RADU TANG MD 01/02/19 13:10: Medical therapy for heart failure, coronary artery disease and chronic left ventricular systolic dysfunction. Original Note: Assessment and Plan Acute systolic heart failure patient admits non-compliance with her diuretic therapy Shortness of breath Bilateral pulmonary infiltrates on CXR Hx of Ischemic CMP LVEF 30-35% Patent LAD and Cx stents by [facility] 2011 MPI revealed fixed anterior, anterolateral, lateral and septal wall defect, n o ischemia 02/2014 Hx of CAD Presence of AICD Recommendations: Continue medical therapy for coronary artery disease and chronic systolic heart failure. Fluid/Sodium restriction. Daily weight. Subjective Date of service: 01/02/19 Principal diagnosis: Shortness of breath Interval history: No interval change. Objective Vital Signs Temp Pulse Pulse Pulse Resp Resp Resp 01/02/19 08:14 97 H 18 01/02/19 08:06 99.0 F 98 H 20 01/02/19 07:56 96 H 17 01/02/19 04:19 98.0 F 93 H 20 01/01/19 23:46 97.0 F L 89 20 01/01/19 22:53 95 H 01/01/19 22:00 80 17 01/01/19 21:21 95 H 20 01/01/19 21:06 93 H 20 01/01/19 20:28 18 01/01/19 19:47 90 01/01/19 19:24 98.0 F 88 18 01/01/19 17:14 97.9 F 91 H 18 01/01/19 16:58 90 01/01/19 16:25 98.3 F 62 19 01/01/19 12:25 01/01/19 11:41 88 BP BP Pulse Ox 01/02/19 08:14 01/02/19 08:06 120/64 95 01/02/19 07:56 01/02/19 04:19 123/67 95 01/01/19 23:46 118/63 94 01/01/19 22:53 137/66 01/01/19 22:00 01/01/19 21:21 01/01/19 21:06 98 01/01/19 20:28 01/01/19 19:47 01/01/19 19:24 137/66 95 01/01/19 17:14 125/61 01/01/19 16:58 125/61 93 01/01/19 16:25 113/62 97 01/01/19 12:25 98 01/01/19 11:41 108/62 98 - Physical Examination General: No Apparent Distress HEENT: Positive: PERRL Neck: Positive: trachea midline Cardiac: Positive: Reg Rate and Rhythm Lungs: Positive: Decreased Breath Sounds Neuro: Positive: Grossly Intact Extremities: Present: +1 Edema - Labs and Meds Comprehensive Metabolic Panel 01/02/19 Range/Units 07:11 Sodium 139 (137-145) mmol/L Potassium 3.6 (3.6-5.0) mmol/L Chloride 92.6 L (98-107) mmol/L Carbon Dioxide 30 (22-30) mmol/L BUN 12 (7-17) mg/dL Creatinine 0.8 (0.7-1.2) mg/dL Glucose 110 H (65-100) mg/dL Calcium 8.7 (8.4-10.2) mg/dL
--- NOTE | 2019-01-02 11:20 | Progress Note ---
Assessment and Plan Assessment and plan: Acute on chronic systolic heart failure. Lasix iv Coreg po Cardiology following Acute hypoxemic respiratory failure. She may need home O2 On supplemental oxygen Pulmonary following Ischemic Cardiomyopathy s/p AICD CAD s/p PCI Bilateral pneumonia. Cont Rocephin, Zithromax Pulmonary hypertension. Etiology secondary to LV dysfunction. Hypothyroidsim. Levothyroxine DVT prophylaxis with Heparin may need home Oxygen Full code status History Interval history: No new issues overnight. Hospitalist Physical - Constitutional Vitals: Temp Pulse Resp BP Pulse Ox 99.0 F 97 H 18 120/64 95 01/02/19 08:06 01/02/19 08:14 01/02/19 08:14 01/02/19 08:06 01/02/19 08:06 General appearance: Present: no acute distress - EENT Eyes: Present: PERRL, EOM intact ENT: hearing intact, clear oral mucosa, dentition normal - Neck Neck: Present: supple, normal ROM - Respiratory Respiratory effort: normal Respiratory: bilateral: CTA - Cardiovascular Rhythm: regular Heart Sounds: Present: S1 & S2. Absent: gallop, rub - Extremities Extremities: no ischemia, No edema, Full ROM - Abdominal General gastrointestinal: soft, non-tender, non-distended, normal bowel sounds - Integumentary Integumentary: Present: clear, warm, dry - Neurologic Neurologic: CNII-XII intact, moves all extremities Results - Labs CBC & Chem 7: 01/01/19 04:37 01/02/19 07:11 Labs: Laboratory Last Values WBC 4.4 K/mm3 (4.5-11.0) L 01/01/19 04:37 RBC 3.40 M/mm3 (3.65-5.03) L 01/01/19 04:37 Hgb 11.5 gm/dl (10.1-14.3) 01/01/19 04:37 Hct 34.7 % (30.3-42.9) 01/01/19 04:37 MCV 102 fl (79-97) H 01/01/19 04:37 MCH 34 pg (28-32) H 01/01/19 04:37 MCHC 33 % (30-34) 01/01/19 04:37 RDW 14.9 % (13.2-15.2) 01/01/19 04:37 Plt Count 156 K/mm3 (140-440) 01/01/19 04:37 Lymph % (Auto) 11.3 % (13.4-35.0) L 12/27/18 22:37 [place] % (Auto) 9.5 % (0.0-7.3) H 12/27/18 22:37 Eos % (Auto) 0.2 % (0.0-4.3) 12/27/18 22:37 Baso % (Auto) 0.9 % (0.0-1.8) 12/27/18 22:37 Lymph # 0.6 K/mm3 (1.2-5.4) L 12/27/18 22:37 [place] # 0.5 K/mm3 (0.0-0.8) 12/27/18 22:37 Eos # 0.0 K/mm3 (0.0-0.4) 12/27/18 22:37 Baso # 0.1 K/mm3 (0.0-0.1) 12/27/18 22:37 Seg Neutrophils % 78.1 % (40.0-70.0) H 12/27/18 22:37 Seg Neutrophils # 4.5 K/mm3 (1.8-7.7) 12/27/18 22:37 POC ABG pH 7.467 (7.35-7.45) H 12/31/18 10:15 POC ABG pCO2 45.8 (35-45) H 12/31/18 10:15 POC ABG pO2 72 (80-105) L 12/31/18 10:15 POC ABG HCO3 33.1 12/31/18 10:15 POC ABG Total CO2 34 12/31/18 10:15 POC ABG O2 Sat 95 12/31/18 10:15 POC ABG Base Excess 9 12/31/18 10:15 FiO2 4 % 12/31/18 10:15 Sodium 139 mmol/L (137-145) 01/02/19 07:11 Potassium 3.6 mmol/L (3.6-5.0) 01/02/19 07:11 Chloride 92.6 mmol/L (98-107) L 01/02/19 07:11 Carbon Dioxide 30 mmol/L (22-30) 01/02/19 07:11 Anion Gap 20 mmol/L 01/02/19 07:11 BUN 12 mg/dL (7-17) 01/02/19 07:11 Creatinine 0.8 mg/dL (0.7-1.2) 01/02/19 07:11 Estimated GFR > 60 ml/min 01/02/19 07:11 BUN/Creatinine Ratio 15 % 01/02/19 07:11 Glucose 110 mg/dL (65-100) H 01/02/19 07:11 Lactic Acid 1.90 mmol/L (0.7-2.0) 12/28/18 01:43 Calcium 8.7 mg/dL (8.4-10.2) 01/02/19 07:11 Total Creatine Kinase 250 units/L (30-135) H 12/28/18 03:18 CK-MB (CK-2) 3.7 ng/mL (0.0-4.0) 12/28/18 03:18 CK-MB (CK-2) Rel Index 1.4 (0-4) 12/28/18 03:18 Troponin T < 0.010 ng/mL (0.00-0.029) 12/28/18 03:18 NT-Pro-B Natriuret Pep 2231 pg/mL (0-900) H 12/27/18 22:37 Urine Color Yellow (Yellow) 12/27/18 01:10 Urine Turbidity Clear (Clear) 12/27/18 01:10 Urine pH 5.0 (5.0-7.0) 12/27/18 01:10 Ur Specific [place] 1.023 (1.003-1.030) 12/27/18 01:10 Urine Protein 100 mg/dl mg/dL (Negative) 12/27/18 01:10 Urine Glucose (UA) Neg mg/dL (Negative) 12/27/18 01:10 Urine Ketones 20 mg/dL (Negative) 12/27/18 01:10 Urine Blood Neg (Negative) 12/27/18 01:10 Urine Nitrite Neg (Negative) 12/27/18 01:10 Urine Bilirubin Neg (Negative) 12/27/18 01:10 Urine Urobilinogen < 2.0 mg/dL (<2.0) 12/27/18 01:10 Ur Leukocyte Esterase Neg (Negative) 12/27/18 01:10 Urine WBC (Auto) 3.0 /HPF (0.0-6.0) 12/27/18 01:10 Urine RBC (Auto) 1.0 /HPF (0.0-6.0) 12/27/18 01:10 U Epithel Cells (Auto) < 1.0 /HPF (0-13.0) 12/27/18 01:10 Urine Mucus Few /HPF 12/27/18 01:10
--- NOTE | 2019-01-02 15:21 | Progress Note ---
Assessment and Plan Imp: 1. Pneumonia; cannot r/o influenza 2. A/C systolic CHF 3. ICMP 4. CAD 5. Acute respiratory failure, hypoxia 6. Pulm HTN 2/2 LV dysfunction Rec: 1. Cont. empiric ABX for pneumonia 2. Cont. Lasix 3. Patient feels nebs help her but does not want to ask for them, so will schedule QID 4. F/u CXR periodically to ensure improvement -> repeat in AM 5. Wean O2 to off, keeping sats 88% or >; home O2 eval. prior to d/c 6. Further plans pending clinical course Plan of care reviewed w/ patient, she understands/agrees Subjective Date of service: 01/02/19 Principal diagnosis: Shortness of breath Interval history: No events. Awake, alert. On NC. SOB slowly getting better. + Cough. Active Medications Acetaminophen (Tylenol) 650 mg PO Q4H PRN PRN Reason: Fever >101 Last Admin: 12/29/18 01:35 Dose: 650 mg Documented by: Albuterol/Ipratropium (Duoneb *Not For Prn Use*) 1 ampul IH QIDRT [facility] Last Admin: 01/02/19 13:01 Dose: 1 ampul Documented by: Aspirin (Aspirin) 325 mg PO QDAY [facility] Last Admin: 01/02/19 09:25 Dose: 325 mg Documented by: Carvedilol (Coreg) 3.125 mg PO BID [facility] Last Admin: 01/02/19 09:25 Dose: 3.125 mg Documented by: Diphenhydramine HCl (Benadryl) 25 mg PO Q8H PRN PRN Reason: Allergy Symptoms Last Admin: 01/02/19 09:25 Dose: 25 mg Documented by: Furosemide (Lasix) 40 mg IV 0600,1800 [facility] Last Admin: 01/02/19 06:19 Dose: 40 mg Documented by: Guaifenesin (Robitussin) 200 mg PO Q4H PRN PRN Reason: Cough Last Admin: 12/31/18 15:12 Dose: 200 mg Documented by: Heparin Sodium (Porcine) (Heparin) 5,000 unit SUB-Q Q12HR [facility] Last Admin: 01/02/19 09:25 Dose: 5,000 unit Documented by: Azithromycin 500 mg/ Sodium (Chloride) 250 mls @ 250 mls/hr IV Q24HR [facility] Last Admin: 01/02/19 09:35 Dose: 250 mls/hr Documented by: Ceftriaxone Sodium (Rocephin/Ns 1 Gm/50 Ml) 1 gm in 50 mls @ 100 mls/hr IV Q24HR [facility]; Protocol Last Admin: 01/02/19 09:35 Dose: 100 mls/hr Documented by: Levothyroxine Sodium (Synthroid) 75 mcg PO QAM@0600 [facility] Last Admin: 01/02/19 06:19 Dose: 75 mcg Documented by: Losartan Potassium (Cozaar) 25 mg PO QDAY [facility] Last Admin: 01/02/19 09:25 Dose: 25 mg Documented by: Ondansetron HCl (Zofran) 4 mg IV Q8H PRN PRN Reason: Nausea And Vomiting Last Admin: 12/30/18 09:15 Dose: 4 mg Documented by: Senna (Senokot) 8.6 mg PO BID PRN PRN Reason: Constipation Spironolactone (Aldactone) 25 mg PO QDAY [facility] Last Admin: 01/02/19 09:25 Dose: 25 mg Documented by: Objective Vital Signs - 12hr 01/02/19 01/02/19 01/02/19 04:19 07:56 08:06 Temperature 98.0 F 99.0 F Pulse Rate 93 H 98 H Pulse Rate [ 96 H Posterior Bilateral Throughout] Respiratory 20 20 Rate Respiratory 17 Rate [Posterior Bilateral Throughout] Blood Pressure 123/67 120/64 O2 Sat by Pulse 95 95 Oximetry 01/02/19 01/02/19 01/02/19 08:14 10:00 13:07 Temperature Pulse Rate Pulse Rate [ 97 H 95 H Posterior Bilateral Throughout] Respiratory Rate Respiratory 18 18 Rate [Posterior Bilateral Throughout] Blood Pressure O2 Sat by Pulse 95 Oximetry 01/02/19 13:13 Temperature Pulse Rate Pulse Rate [ 93 H Posterior Bilateral Throughout] Respiratory Rate Respiratory 18 Rate [Posterior Bilateral Throughout] Blood Pressure O2 Sat by Pulse Oximetry Constitutional: no acute distress, alert Eyes: non-icteric ENT: oropharynx moist Neck: supple Effort: normal Ascultation: Bilateral: rales (bases) Cardiovascular: regular rate and rhythm (no mrg) Gastrointestinal: normoactive bowel sounds, soft, non-tender, non-distended Integumentary: normal Extremities: no cyanosis, no edema, pink and warm Neurologic: normal mental status, non-focal exam, pupils equal and round, CN II- XII normal Psychiatric: mood appropriate, affect normal CBC and BMP: 01/01/19 04:37 01/02/19 07:11 ABG, PT/INR, D-dimer: ABG POC ABG pH 7.467 (7.35-7.45) H 12/31/18 10:15 POC ABG pCO2 45.8 (35-45) H 12/31/18 10:15 POC ABG pO2 72 (80-105) L 12/31/18 10:15 POC ABG HCO3 33.1 12/31/18 10:15 POC ABG Total CO2 34 12/31/18 10:15 POC ABG O2 Sat 95 12/31/18 10:15 Abnormal lab findings: Abnormal Labs 12/27/18 12/27/18 12/28/18 22:37 22:37 03:18 WBC RBC 3.63 L MCV 105 H MCH 34 H RDW 15.7 H Lymph % (Auto) 11.3 L [place] % (Auto) 9.5 H Lymph # 0.6 L Seg Neutrophils % 78.1 H POC ABG pH POC ABG pCO2 POC ABG pO2 Sodium 136 L Potassium Chloride Carbon Dioxide BUN Glucose Calcium Total Creatine Kinase 250 H NT-Pro-B Natriuret Pep 2231 H 12/31/18 12/31/18 12/31/18 10:09 10:09 10:15 WBC RBC 3.48 L MCV 102 H MCH 34 H RDW Lymph % (Auto) [place] % (Auto) Lymph # Seg Neutrophils % POC ABG pH 7.467 H POC ABG pCO2 45.8 H POC ABG pO2 72 L Sodium 136 L Potassium Chloride 91.2 L Carbon Dioxide BUN 23 H Glucose 107 H Calcium 8.3 L Total Creatine Kinase NT-Pro-B Natriuret Pep 01/01/19 01/01/19 01/02/19 04:37 04:37 07:11 WBC 4.4 L RBC 3.40 L MCV 102 H MCH 34 H RDW Lymph % (Auto) [place] % (Auto) Lymph # Seg Neutrophils % POC ABG pH POC ABG pCO2 POC ABG pO2 Sodium Potassium 3.3 L Chloride 93.4 L 92.6 L Carbon Dioxide 32 H BUN Glucose 110 H Calcium Total Creatine Kinase NT-Pro-B Natriuret Pep Chest x-ray: report reviewed, image reviewed
[2019-01-03] MEDS: LASIX IV SCH ×2 (05:17→17:18)
[2019-01-03] MEDS: SYNTHROID PO SCH (05:18)
[2019-01-03] MEDS: DUONEB *Not for PRN Use IH SCH ×4 (09:04→22:17)
--- NOTE | 2019-01-03 09:07 | XRay Report ---
PORTABLE CHEST INDICATION: Pneumonia. COMPARISON: 12/31/2018 FINDINGS: Portable, frontal chest radiograph demonstrates stable cardiomediastinal silhouette with slight improved left upper to midlung opacity/infiltrates, though again noted toward both lung bases, in part atelectasis as on the right. Small bilateral pleural effusions not excluded. Right hemidiaphragm again approximately 5 cm higher than the left. Stable left AICD with single ventricular lead. EKG leads. Intact bones. CONCLUSION: Overall radiographic improvement in left lung opacities/infiltrates with various other stable findings, including right basilar atelectasis, as described. Please correlate. Thank you for the opportunity to participate in this patient's care.
--- NOTE | 2019-01-03 09:35 | Progress Note ---
Assessment and Plan Acute systolic heart failure patient admits non-compliance with her diuretic therapy Shortness of breath Bilateral pulmonary infiltrates on CXR Hx of Ischemic CMP LVEF 30-35% Patent LAD and Cx stents by [facility] 2011 MPI revealed fixed anterior, anterolateral, lateral and septal wall defect, no ischemia 02/2014 Hx of CAD Presence of AICD Atrial tachycardia seen on telemetry likely s/t nebulizer treatments Recommendations: Continue medical therapy for coronary artery disease and chronic systolic heart failure. We will increase beta blockers for suppression of atrial tachycardia. Subjective Date of service: 01/03/19 Principal diagnosis: Shortness of breath Interval history: Patient reports shortness of breath with minimal exertion. Still requiring oxygen by nasal cannula. Atrial tachycardia seen on telemetry. Objective Vital Signs Temp Pulse Pulse Pulse Pulse Resp Resp 01/03/19 09:17 104 H 104 H 104 H 20 01/03/19 09:05 109 H 109 H 01/03/19 08:43 98.5 F 109 H 20 01/03/19 04:12 99.5 F 107 H 16 01/02/19 23:25 98.7 F 102 H 16 01/02/19 22:04 90 01/02/19 20:00 103 H 01/02/19 19:27 95 H 01/02/19 19:19 97.2 F L 98 H 12 01/02/19 19:16 01/02/19 19:15 97 H 01/02/19 15:21 98.3 F 93 H 20 01/02/19 13:13 93 H 01/02/19 13:07 95 H 01/02/19 11:47 98.6 F 89 20 01/02/19 10:00 Resp Resp BP BP Pulse Ox 01/03/19 09:17 20 20 01/03/19 09:05 20 20 94 01/03/19 08:43 98/54 92 01/03/19 04:12 115/67 94 01/02/19 23:25 104/61 94 01/02/19 22:04 119/60 01/02/19 20:00 01/02/19 19:27 18 01/02/19 19:19 119/59 95 01/02/19 19:16 98 01/02/19 19:15 18 01/02/19 15:21 102/56 97 01/02/19 13:13 18 01/02/19 13:07 18 01/02/19 11:47 92/52 98 01/02/19 10:00 95 - Physical Examination General: No Apparent Distress HEENT: Positive: PERRL Neck: Positive: trachea midline Cardiac: Positive: Tachycardia Lungs: Positive: Decreased Breath Sounds Neuro: Positive: Grossly Intact Extremities: Present: +1 Edema
[2019-01-03] MEDS: ASPIRIN PO SCH (09:36)
[2019-01-03] MEDS: ALDACTONE PO SCH (09:36)
[2019-01-03] MEDS: COREG PO SCH ×3 (09:36→21:06)
[2019-01-03] MEDS: COZAAR PO SCH (09:37)
[2019-01-03] MEDS: HEPARIN SUB-Q SCH ×2 (09:37→21:07)
--- NOTE | 2019-01-03 09:58 | Progress Note ---
Assessment and Plan Assessment and plan: Acute on chronic systolic heart failure. Lasix iv Coreg po Cardiology following Acute hypoxemic respiratory failure. She may need home O2 On supplemental oxygen Pulmonary following Ischemic Cardiomyopathy s/p AICD LVEF 30-35%, Patent LAD and Cx stents by [facility] 2011. MPI revealed fixed anterior, anterolateral, lateral and septal wall defect, no ischemia 02/2014 CAD s/p PCI Bilateral pneumonia. Cont Rocephin, Zithromax, f/u sputum cx Pulmonary hypertension. Etiology secondary to LV dysfunction. Hypothyroidsim. Levothyroxine DVT prophylaxis with Heparin may need home Oxygen Full code status History Interval history: No new issues overnight. Hospitalist Physical - Constitutional Vitals: Temp Pulse Resp BP Pulse Ox 98.5 F 104 H 20 98/54 94 01/03/19 08:43 01/03/19 09:17 01/03/19 09:17 01/03/19 08:43 01/03/19 09:05 General appearance: Present: no acute distress - EENT Eyes: Present: PERRL, EOM intact ENT: hearing intact, clear oral mucosa, dentition normal - Neck Neck: Present: supple, normal ROM - Respiratory Respiratory effort: normal Respiratory: bilateral: CTA - Cardiovascular Rhythm: regular Heart Sounds: Present: S1 & S2. Absent: gallop, rub - Extremities Extremities: no ischemia, No edema, Full ROM - Abdominal General gastrointestinal: soft, non-tender, non-distended, normal bowel sounds - Integumentary Integumentary: Present: clear, warm, dry - Neurologic Neurologic: CNII-XII intact, moves all extremities Results - Labs CBC & Chem 7: 01/01/19 04:37 01/02/19 07:11 Labs: Laboratory Last Values WBC 4.4 K/mm3 (4.5-11.0) L 01/01/19 04:37 RBC 3.40 M/mm3 (3.65-5.03) L 01/01/19 04:37 Hgb 11.5 gm/dl (10.1-14.3) 01/01/19 04:37 Hct 34.7 % (30.3-42.9) 01/01/19 04:37 MCV 102 fl (79-97) H 01/01/19 04:37 MCH 34 pg (28-32) H 01/01/19 04:37 MCHC 33 % (30-34) 01/01/19 04:37 RDW 14.9 % (13.2-15.2) 01/01/19 04:37 Plt Count 156 K/mm3 (140-440) 01/01/19 04:37 Lymph % (Auto) 11.3 % (13.4-35.0) L 12/27/18 22:37 [place] % (Auto) 9.5 % (0.0-7.3) H 12/27/18 22:37 Eos % (Auto) 0.2 % (0.0-4.3) 12/27/18 22:37 Baso % (Auto) 0.9 % (0.0-1.8) 12/27/18 22:37 Lymph # 0.6 K/mm3 (1.2-5.4) L 12/27/18 22:37 [place] # 0.5 K/mm3 (0.0-0.8) 12/27/18 22:37 Eos # 0.0 K/mm3 (0.0-0.4) 12/27/18 22:37 Baso # 0.1 K/mm3 (0.0-0.1) 12/27/18 22:37 Seg Neutrophils % 78.1 % (40.0-70.0) H 12/27/18 22:37 Seg Neutrophils # 4.5 K/mm3 (1.8-7.7) 12/27/18 22:37 POC ABG pH 7.467 (7.35-7.45) H 12/31/18 10:15 POC ABG pCO2 45.8 (35-45) H 12/31/18 10:15 POC ABG pO2 72 (80-105) L 12/31/18 10:15 POC ABG HCO3 33.1 12/31/18 10:15 POC ABG Total CO2 34 12/31/18 10:15 POC ABG O2 Sat 95 12/31/18 10:15 POC ABG Base Excess 9 12/31/18 10:15 FiO2 4 % 12/31/18 10:15 Sodium 139 mmol/L (137-145) 01/02/19 07:11 Potassium 3.6 mmol/L (3.6-5.0) 01/02/19 07:11 Chloride 92.6 mmol/L (98-107) L 01/02/19 07:11 Carbon Dioxide 30 mmol/L (22-30) 01/02/19 07:11 Anion Gap 20 mmol/L 01/02/19 07:11 BUN 12 mg/dL (7-17) 01/02/19 07:11 Creatinine 0.8 mg/dL (0.7-1.2) 01/02/19 07:11 Estimated GFR > 60 ml/min 01/02/19 07:11 BUN/Creatinine Ratio 15 % 01/02/19 07:11 Glucose 110 mg/dL (65-100) H 01/02/19 07:11 Lactic Acid 1.90 mmol/L (0.7-2.0) 12/28/18 01:43 Calcium 8.7 mg/dL (8.4-10.2) 01/02/19 07:11 Total Creatine Kinase 250 units/L (30-135) H 12/28/18 03:18 CK-MB (CK-2) 3.7 ng/mL (0.0-4.0) 12/28/18 03:18 CK-MB (CK-2) Rel Index 1.4 (0-4) 12/28/18 03:18 Troponin T < 0.010 ng/mL (0.00-0.029) 12/28/18 03:18 NT-Pro-B Natriuret Pep 2231 pg/mL (0-900) H 12/27/18 22:37 Urine Color Yellow (Yellow) 12/27/18 01:10 Urine Turbidity Clear (Clear) 12/27/18 01:10 Urine pH 5.0 (5.0-7.0) 12/27/18 01:10 Ur Specific [place] 1.023 (1.003-1.030) 12/27/18 01:10 Urine Protein 100 mg/dl mg/dL (Negative) 12/27/18 01:10 Urine Glucose (UA) Neg mg/dL (Negative) 12/27/18 01:10 Urine Ketones 20 mg/dL (Negative) 12/27/18 01:10 Urine Blood Neg (Negative) 12/27/18 01:10 Urine Nitrite Neg (Negative) 12/27/18 01:10 Urine Bilirubin Neg (Negative) 12/27/18 01:10 Urine Urobilinogen < 2.0 mg/dL (<2.0) 12/27/18 01:10 Ur Leukocyte Esterase Neg (Negative) 12/27/18 01:10 Urine WBC (Auto) 3.0 /HPF (0.0-6.0) 12/27/18 01:10 Urine RBC (Auto) 1.0 /HPF (0.0-6.0) 12/27/18 01:10 U Epithel Cells (Auto) < 1.0 /HPF (0-13.0) 12/27/18 01:10 Urine Mucus Few /HPF 12/27/18 01:10
--- NOTE | 2019-01-03 10:50 | Progress Note ---
Assessment and Plan Imp: 1. Pneumonia; cannot r/o influenza 2. A/C systolic CHF 3. ICMP 4. CAD 5. Acute respiratory failure, hypoxia 6. Pulm HTN 2/2 LV dysfunction Rec: 1. Cont. empiric ABX for pneumonia; complete 10 days total 2. Cont. Lasix, as per cardiology 3. Wean O2 to off, keeping sats 88% or >; home O2 eval. prior to d/c 4. CXR is much improved, and she is clinically better; if RA sats are acceptable she can be discharged pulmonary-barr Plan of care reviewed w/ patient, she understands/agrees Subjective Date of service: 01/03/19 Principal diagnosis: Shortness of breath Interval history: No events. Awake, alert. On NC. SOB slowly getting better. + Cough. Active Medications Acetaminophen (Tylenol) 650 mg PO Q4H PRN PRN Reason: Fever >101 Last Admin: 12/29/18 01:35 Dose: 650 mg Documented by: Albuterol/Ipratropium (Duoneb *Not For Prn Use*) 1 ampul IH QIDRT [facility] Last Admin: 01/03/19 09:04 Dose: 1 ampul Documented by: Aspirin (Aspirin) 325 mg PO QDAY [facility] Last Admin: 01/03/19 09:36 Dose: 325 mg Documented by: Carvedilol (Coreg) 6.25 mg PO BID [facility] Diphenhydramine HCl (Benadryl) 25 mg PO Q8H PRN PRN Reason: Allergy Symptoms Last Admin: 01/02/19 09:25 Dose: 25 mg Documented by: Furosemide (Lasix) 40 mg IV 0600,1800 [facility] Last Admin: 01/03/19 05:17 Dose: 40 mg Documented by: Guaifenesin (Robitussin) 200 mg PO Q4H PRN PRN Reason: Cough Last Admin: 12/31/18 15:12 Dose: 200 mg Documented by: Heparin Sodium (Porcine) (Heparin) 5,000 unit SUB-Q Q12HR [facility] Last Admin: 01/03/19 09:37 Dose: 5,000 unit Documented by: Levothyroxine Sodium (Synthroid) 75 mcg PO QAM@0600 [facility] Last Admin: 01/03/19 05:18 Dose: 75 mcg Documented by: Losartan Potassium (Cozaar) 25 mg PO QDAY [facility] Last Admin: 01/03/19 09:37 Dose: Not Given Documented by: Ondansetron HCl (Zofran) 4 mg IV Q8H PRN PRN Reason: Nausea And Vomiting Last Admin: 12/30/18 09:15 Dose: 4 mg Documented by: [place] (Senokot) 8.6 mg PO BID PRN PRN Reason: Constipation Spironolactone (Aldactone) 25 mg PO QDAY [facility] Last Admin: 01/03/19 09:36 Dose: Not Given Documented by: Objective Vital Signs - 12hr 01/02/19 01/03/19 01/03/19 23:25 04:12 08:43 Temperature 98.7 F 99.5 F 98.5 F Pulse Rate 102 H 107 H 109 H Pulse Rate [ Anterior Bilateral Throughout] Pulse Rate [ Anterior Right Throughout] Pulse Rate [ Posterior Bilateral Throughout] Respiratory 16 16 20 Rate Respiratory Rate [Anterior Bilateral Throughout] Respiratory Rate [Anterior Right Throughout] Respiratory Rate [Posterior Bilateral Throughout] Blood Pressure 104/61 115/67 Blood Pressure 98/54 [Left] O2 Sat by Pulse 94 94 92 Oximetry 01/03/19 01/03/19 09:05 09:17 Temperature Pulse Rate Pulse Rate [ 104 H Anterior Bilateral Throughout] Pulse Rate [ 109 H 104 H Anterior Right Throughout] Pulse Rate [ 109 H 104 H Posterior Bilateral Throughout] Respiratory Rate Respiratory 20 Rate [Anterior Bilateral Throughout] Respiratory 20 20 Rate [Anterior Right Throughout] Respiratory 20 20 Rate [Posterior Bilateral Throughout] Blood Pressure Blood Pressure [Left] O2 Sat by Pulse 94 Oximetry Constitutional: no acute distress, alert Eyes: non-icteric ENT: oropharynx moist Neck: supple Effort: normal Ascultation: Bilateral: rales (bases) Cardiovascular: regular rate and rhythm (no mrg) Gastrointestinal: normoactive bowel sounds, soft, non-tender, non-distended Integumentary: normal Extremities: no cyanosis, no edema, pink and warm Neurologic: normal mental status, non-focal exam, pupils equal and round, CN II- XII normal Psychiatric: mood appropriate, affect normal CBC and BMP: 01/01/19 04:37 01/02/19 07:11 ABG, PT/INR, D-dimer: ABG POC ABG pH 7.467 (7.35-7.45) H 12/31/18 10:15 POC ABG pCO2 45.8 (35-45) H 12/31/18 10:15 POC ABG pO2 72 (80-105) L 12/31/18 10:15 POC ABG HCO3 33.1 12/31/18 10:15 POC ABG Total CO2 34 12/31/18 10:15 POC ABG O2 Sat 95 12/31/18 10:15 Abnormal lab findings: Abnormal Labs 12/27/18 12/27/18 12/28/18 22:37 22:37 03:18 WBC RBC 3.63 L MCV 105 H MCH 34 H RDW 15.7 H Lymph % (Auto) 11.3 L [place] % (Auto) 9.5 H Lymph # 0.6 L Seg Neutrophils % 78.1 H POC ABG pH POC ABG pCO2 POC ABG pO2 Sodium 136 L Potassium Chloride Carbon Dioxide BUN Glucose Calcium Total Creatine Kinase 250 H NT-Pro-B Natriuret Pep 2231 H 12/31/18 12/31/18 12/31/18 10:09 10:09 10:15 WBC RBC 3.48 L MCV 102 H MCH 34 H RDW Lymph % (Auto) [place] % (Auto) Lymph # Seg Neutrophils % POC ABG pH 7.467 H POC ABG pCO2 45.8 H POC ABG pO2 72 L Sodium 136 L Potassium Chloride 91.2 L Carbon Dioxide BUN 23 H Glucose 107 H Calcium 8.3 L Total Creatine Kinase NT-Pro-B Natriuret Pep 01/01/19 01/01/19 01/02/19 04:37 04:37 07:11 WBC 4.4 L RBC 3.40 L MCV 102 H MCH 34 H RDW Lymph % (Auto) [place] % (Auto) Lymph # Seg Neutrophils % POC ABG pH POC ABG pCO2 POC ABG pO2 Sodium Potassium 3.3 L Chloride 93.4 L 92.6 L Carbon Dioxide 32 H BUN Glucose 110 H Calcium Total Creatine Kinase NT-Pro-B Natriuret Pep Chest x-ray: report reviewed, image reviewed (significant improvement in bilateral infiltrates)
[2019-01-03] MEDS: TYLENOL PO PRN (23:58)
[2019-01-04 05:01] LABS: Hemoglobin 11.7 gm/dl (10.1-14.3); Mean Corpuscular HGB Conc 34 % (30-34); Mean Corpuscular Volume 102 fl (79-97); Red Blood Count 3.45 M/mm3 (3.65-5.03); Red Cell Distribution Width 14.6 % (13.2-15.2)
[2019-01-04 05:07] LABS: Platelet Count 237 K/mm3 (140-440)
[2019-01-04 05:09] LABS: Basophils # (Auto) 0.1 K/mm3 (0.0-0.1); Eosinophils # (Auto) 0.1 K/mm3 (0.0-0.4); Monocytes # (Auto) 1.9 K/mm3 (0.0-0.8)
[2019-01-04 05:18] LABS: Calcium 8.9 mg/dL (8.4-10.2)
[2019-01-04] MEDS: SYNTHROID PO SCH (05:27)
[2019-01-04] MEDS: LASIX IV SCH ×2 (05:28→18:06)
[2019-01-04] MEDS: DUONEB *Not for PRN Use IH SCH ×4 (07:28→19:16)
[2019-01-04 08:27] LABS: Basophils % (Manual) 0 % (0.0-1.8); Total Cells Counted 100
[2019-01-04 08:28] LABS: Anisocytosis 1+; Giant Platelets Few; Platelet Estimate Consistent w Auto; Poikilocytosis 1+
--- NOTE | 2019-01-04 09:33 | Progress Note ---
Addendum entered and electronically signed by RADU TANG MD 01/04/19 13:16: Medical therapy for coronary artery disease and chronic systolic heart failure. Original Note: Assessment and Plan Acute systolic heart failure patient admits non-compliance with her diuretic therapy Shortness of breath Bilateral pulmonary infiltrates on CXR Hx of Ischemic CMP LVEF 30-35% Patent LAD and Cx stents by [facility] 2011 MPI revealed fixed anterior, anterolateral, lateral and septal wall defect, no ischemia 02/2014 Hx of CAD Presence of AICD Atrial tachycardia seen on telemetry likely s/t nebulizer treatments Recommendations: Continue medical therapy for coronary artery disease and chronic systolic heart failure. Subjective Date of service: 01/04/19 Principal diagnosis: Shortness of breath Interval history: No interval changes. Stable sinus rhythm on telemetry. Objective Vital Signs Temp Pulse Pulse Pulse Pulse Resp Resp 01/04/19 08:00 98.4 F 95 H 20 01/04/19 07:38 97 H 18 01/04/19 07:28 95 H 18 01/04/19 05:28 97.8 F 91 H 20 01/04/19 04:27 97.6 F 89 14 01/03/19 23:30 100.2 F H 100 H 16 01/03/19 22:27 101 H 01/03/19 22:17 98 H 01/03/19 22:00 01/03/19 21:06 102 H 01/03/19 20:06 98.5 F 108 H 12 01/03/19 20:00 106 H 01/03/19 15:31 97.8 F 01/03/19 15:21 100 H 20 01/03/19 12:50 107 H 107 H 107 H 18 01/03/19 12:40 102 H 102 H Resp Resp BP Pulse Ox 01/04/19 08:00 116/53 94 01/04/19 07:38 01/04/19 07:28 96 01/04/19 05:28 100/54 95 01/04/19 04:27 111/61 95 01/03/19 23:30 102/55 98 01/03/19 22:27 18 01/03/19 22:17 18 01/03/19 22:00 96 01/03/19 21:06 112/66 01/03/19 20:06 112/66 95 01/03/19 20:00 01/03/19 15:31 01/03/19 15:21 100/59 94 01/03/19 12:50 18 18 01/03/19 12:40 18 18 - Physical Examination General: No Apparent Distress HEENT: Positive: PERRL Neck: Positive: trachea midline Cardiac: Positive: Reg Rate and Rhythm Lungs: Positive: Decreased Breath Sounds Neuro: Positive: Grossly Intact Extremities: Present: +1 Edema - Labs and Meds CBC 01/04/19 Range/Units 04:41 WBC 9.8 (4.5-11.0) K/mm3 RBC 3.45 L (3.65-5.03) M/mm3 Hgb 11.7 (10.1-14.3) gm/dl Hct 35.0 (30.3-42.9) % Plt Count 237 (140-440) K/mm3 [place] # 1.9 H (0.0-0.8) K/mm3 Eos # 0.1 (0.0-0.4) K/mm3 Baso # 0.1 (0.0-0.1) K/mm3 Comprehensive Metabolic Panel 01/04/19 Range/Units 04:41 Sodium 133 L (137-145) mmol/L Potassium 3.7 (3.6-5.0) mmol/L Chloride 89.8 L (98-107) mmol/L Carbon Dioxide 31 H (22-30) mmol/L BUN 17 (7-17) mg/dL Creatinine 1.1 (0.7-1.2) mg/dL Glucose 121 H (65-100) mg/dL Calcium 8.9 (8.4-10.2) mg/dL
[2019-01-04] MEDS: ASPIRIN PO SCH (10:13)
[2019-01-04] MEDS: HEPARIN SUB-Q SCH ×2 (10:13→21:29)
[2019-01-04] MEDS: COREG PO SCH ×2 (10:13→21:28)
[2019-01-04] MEDS: ALDACTONE PO SCH (10:13)
[2019-01-04] MEDS: COZAAR PO SCH (10:13)
--- NOTE | 2019-01-04 11:07 | Progress Note ---
Assessment and Plan Assessment and plan: Acute on chronic systolic heart failure. Lasix iv Coreg po Cardiology following Acute hypoxemic respiratory failure. She may need home O2 On supplemental oxygen Pulmonary following Ischemic Cardiomyopathy s/p AICD LVEF 30-35%, Patent LAD and Cx stents by [facility] 2011. MPI revealed fixed anterior, anterolateral, lateral and septal wall defect, no ischemia 02/2014 CAD s/p PCI Bilateral pneumonia. Cont Rocephin, Zithromax, f/u sputum cx Pulmonary hypertension. Etiology secondary to LV dysfunction. Hypothyroidsim. Levothyroxine DVT prophylaxis with Heparin may need home Oxygen Full code status History Interval history: No new issues overnight. Hospitalist Physical - Constitutional Vitals: Temp Pulse Resp BP Pulse Ox 98.4 F 95 H 20 116/53 94 01/04/19 08:00 01/04/19 08:00 01/04/19 08:00 01/04/19 08:00 01/04/19 08:00 General appearance: Present: no acute distress - EENT Eyes: Present: PERRL, EOM intact ENT: hearing intact, clear oral mucosa, dentition normal - Neck Neck: Present: supple, normal ROM - Respiratory Respiratory effort: normal Respiratory: bilateral: CTA - Cardiovascular Rhythm: regular Heart Sounds: Present: S1 & S2. Absent: gallop, rub - Extremities Extremities: no ischemia, No edema, Full ROM - Abdominal General gastrointestinal: soft, non-tender, non-distended, normal bowel sounds - Integumentary Integumentary: Present: clear, warm, dry - Neurologic Neurologic: CNII-XII intact, moves all extremities Results - Labs CBC & Chem 7: 01/04/19 04:41 01/04/19 04:41 Labs: Laboratory Last Values WBC 9.8 K/mm3 (4.5-11.0) 01/04/19 04:41 RBC 3.45 M/mm3 (3.65-5.03) L 01/04/19 04:41 Hgb 11.7 gm/dl (10.1-14.3) 01/04/19 04:41 Hct 35.0 % (30.3-42.9) 01/04/19 04:41 MCV 102 fl (79-97) H 01/04/19 04:41 MCH 34 pg (28-32) H 01/04/19 04:41 MCHC 34 % (30-34) 01/04/19 04:41 RDW 14.6 % (13.2-15.2) 01/04/19 04:41 Plt Count 237 K/mm3 (140-440) 01/04/19 04:41 Lymph % (Auto) 11.3 % (13.4-35.0) L 12/27/18 22:37 [place] % (Auto) [place] 01/04/19 04:41 Eos % (Auto) 1.0 % (0.0-4.3) 01/04/19 04:41 Baso % (Auto) 0.9 % (0.0-1.8) 12/27/18 22:37 Lymph # 0.6 K/mm3 (1.2-5.4) L 12/27/18 22:37 [place] # 1.9 K/mm3 (0.0-0.8) H 01/04/19 04:41 Eos # 0.1 K/mm3 (0.0-0.4) 01/04/19 04:41 Baso # 0.1 K/mm3 (0.0-0.1) 01/04/19 04:41 Add Manual Diff Complete 01/04/19 04:41 Total Counted 100 01/04/19 04:41 Seg Neutrophils % 65.1 % (40.0-70.0) 01/04/19 04:41 Seg Neuts % (Manual) 70.0 % (40.0-70.0) 01/04/19 04:41 Band Neutrophils % 0 % 01/04/19 04:41 Lymphocytes % (Manual) 16.0 % (13.4-35.0) 01/04/19 04:41 Reactive Lymphs % (Man) 0 % 01/04/19 04:41 Monocytes % (Manual) 13.0 % (0.0-7.3) H 01/04/19 04:41 Eosinophils % (Manual) 1.0 % (0.0-4.3) 01/04/19 04:41 Basophils % (Manual) 0 % (0.0-1.8) 01/04/19 04:41 Metamyelocytes % 0 % 01/04/19 04:41 Myelocytes % 0 % 01/04/19 04:41 Promyelocytes % 0 % 01/04/19 04:41 Blast Cells % 0 % 01/04/19 04:41 Nucleated RBC % Not Reportable 01/04/19 04:41 Seg Neutrophils # 6.4 K/mm3 (1.8-7.7) 01/04/19 04:41 Seg Neutrophils # Man 6.9 K/mm3 (1.8-7.7) 01/04/19 04:41 Band Neutrophils # 0.0 K/mm3 01/04/19 04:41 Lymphocytes # (Manual) 1.6 K/mm3 (1.2-5.4) 01/04/19 04:41 Abs React Lymphs (Man) 0.0 K/mm3 01/04/19 04:41 Monocytes # (Manual) 1.3 K/mm3 (0.0-0.8) H 01/04/19 04:41 Eosinophils # (Manual) 0.1 K/mm3 (0.0-0.4) 01/04/19 04:41 Basophils # (Manual) 0.0 K/mm3 (0.0-0.1) 01/04/19 04:41 Metamyelocytes # 0.0 K/mm3 01/04/19 04:41 Myelocytes # 0.0 K/mm3 01/04/19 04:41 Promyelocytes # 0.0 K/mm3 01/04/19 04:41 Blast Cells # 0.0 K/mm3 01/04/19 04:41 WBC Morphology Not Reportable 01/04/19 04:41 Hypersegmented Neuts Not Reportable 01/04/19 04:41 Hyposegmented Neuts Not Reportable 01/04/19 04:41 Hypogranular Neuts Not Reportable 01/04/19 04:41 Smudge Cells Not Reportable 01/04/19 04:41 Toxic Granulation Not Reportable 01/04/19 04:41 Toxic Vacuolation Not Reportable 01/04/19 04:41 Dohle Bodies Not Reportable 01/04/19 04:41 Pelger-Huet Anomaly Not Reportable 01/04/19 04:41 Francoise Rods Not Reportable 01/04/19 04:41 Platelet Estimate Consistent w auto 01/04/19 04:41 Clumped Platelets Not Reportable 01/04/19 04:41 Plt Clumps, EDTA Not Reportable 01/04/19 04:41 Large Platelets Not Reportable 01/04/19 04:41 Giant Platelets Few 01/04/19 04:41 Platelet Satelliting Not Reportable 01/04/19 04:41 Plt Morphology Comment Not Reportable 01/04/19 04:41 RBC Morphology Not Reportable 01/04/19 04:41 Dimorphic RBCs Not Reportable 01/04/19 04:41 Polychromasia Not Reportable 01/04/19 04:41 Hypochromasia Not Reportable 01/04/19 04:41 Poikilocytosis 1+ 01/04/19 04:41 Anisocytosis 1+ 01/04/19 04:41 Microcytosis Not Reportable 01/04/19 04:41 Macrocytosis Not Reportable 01/04/19 04:41 Spherocytes Not Reportable 01/04/19 04:41 Pappenheimer Bodies Not Reportable 01/04/19 04:41 Sickle Cells Not Reportable 01/04/19 04:41 Target Cells Not Reportable 01/04/19 04:41 Tear Drop Cells Not Reportable 01/04/19 04:41 Ovalocytes Not Reportable 01/04/19 04:41 Helmet Cells Not Reportable 01/04/19 04:41 [place] Bodies Not Reportable 01/04/19 04:41 [place] Rings Not Reportable 01/04/19 04:41 Bipin Cells Not Reportable 01/04/19 04:41 Bite Cells Not Reportable 01/04/19 04:41 Crenated Cell Not Reportable 01/04/19 04:41 Elliptocytes Not Reportable 01/04/19 04:41 Acanthocytes (Spur) Not Reportable 01/04/19 04:41 Rouleaux Not Reportable 01/04/19 04:41 Hemoglobin C Crystals Not Reportable 01/04/19 04:41 Schistocytes Not Reportable 01/04/19 04:41 Malaria parasites Not Reportable 01/04/19 04:41 [place] Bodies Not Reportable 01/04/19 04:41 Hem Pathologist Commnt No 01/04/19 04:41 POC ABG pH 7.467 (7.35-7.45) H 12/31/18 10:15 POC ABG pCO2 45.8 (35-45) H 12/31/18 10:15 POC ABG pO2 72 (80-105) L 12/31/18 10:15 POC ABG HCO3 33.1 12/31/18 10:15 POC ABG Total CO2 34 12/31/18 10:15 POC ABG O2 Sat 95 12/31/18 10:15 POC ABG Base Excess 9 12/31/18 10:15 FiO2 4 % 12/31/18 10:15 Sodium 133 mmol/L (137-145) L 01/04/19 04:41 Potassium 3.7 mmol/L (3.6-5.0) 01/04/19 04:41 Chloride 89.8 mmol/L (98-107) L 01/04/19 04:41 Carbon Dioxide 31 mmol/L (22-30) H 01/04/19 04:41 Anion Gap 16 mmol/L 01/04/19 04:41 BUN 17 mg/dL (7-17) 01/04/19 04:41 Creatinine 1.1 mg/dL (0.7-1.2) 01/04/19 04:41 Estimated GFR 50 ml/min 01/04/19 04:41 BUN/Creatinine Ratio 15 % 01/04/19 04:41 Glucose 121 mg/dL (65-100) H 01/04/19 04:41 Lactic Acid 1.90 mmol/L (0.7-2.0) 12/28/18 01:43 Calcium 8.9 mg/dL (8.4-10.2) 01/04/19 04:41 Total Creatine Kinase 250 units/L (30-135) H 12/28/18 03:18 CK-MB (CK-2) 3.7 ng/mL (0.0-4.0) 12/28/18 03:18 CK-MB (CK-2) Rel Index 1.4 (0-4) 12/28/18 03:18 Troponin T < 0.010 ng/mL (0.00-0.029) 12/28/18 03:18 NT-Pro-B Natriuret Pep 2231 pg/mL (0-900) H 12/27/18 22:37 Urine Color Yellow (Yellow) 12/27/18 01:10 Urine Turbidity Clear (Clear) 12/27/18 01:10 Urine pH 5.0 (5.0-7.0) 12/27/18 01:10 Ur Specific [place] 1.023 (1.003-1.030) 12/27/18 01:10 Urine Protein 100 mg/dl mg/dL (Negative) 12/27/18 01:10 Urine Glucose (UA) Neg mg/dL (Negative) 12/27/18 01:10 Urine Ketones 20 mg/dL (Negative) 12/27/18 01:10 Urine Blood Neg (Negative) 12/27/18 01:10 Urine Nitrite Neg (Negative) 12/27/18 01:10 Urine Bilirubin Neg (Negative) 12/27/18 01:10 Urine Urobilinogen < 2.0 mg/dL (<2.0) 12/27/18 01:10 Ur Leukocyte Esterase Neg (Negative) 12/27/18 01:10 Urine WBC (Auto) 3.0 /HPF (0.0-6.0) 12/27/18 01:10 Urine RBC (Auto) 1.0 /HPF (0.0-6.0) 12/27/18 01:10 U Epithel Cells (Auto) < 1.0 /HPF (0-13.0) 12/27/18 01:10 Urine Mucus Few /HPF 12/27/18 01:10 Nutrition/Malnutrition Assess - Dietary Evaluation Nutrition/Malnutrition Findings: Nutrition Notes Start: 01/04/19 09:16 Freq: Status: Active Protocol: Document 01/04/19 09:16 ER (Rec: 01/04/19 09:24 ER [id number]) Co-Sign 01/04/19 09:16 LP Nutrition Notes Need for Assessment generated from: LOS Initial or Follow up Assessment Current Diagnosis Coronary Artery Disease Hypertension Other Pertinent Diagnosis Pneumonia Current Diet Mechanical Soft Labs/Tests Na: 133 Pertinent Medications Reviewed Height 5 ft 2 in Weight 67.8 kg [place] Body Weight (kg) 50.00 BMI 27.3 Weight Status Overweight Subjective/Other Information Screen for LOS. Pt. eating 75% of meals. Pt. stated she has her appetite back and the mechanical soft diet has helped. Pt. denied having N/V/ D/C or chewing/swallowing difficulties. Pt. denied need for ONS. Percent of energy/protein needs met: 100% Burn Absent Trauma Absent GI Symptoms None Food Allergy No Minimum of two criteria No #1 Nutrition Diagnosis No nutrition diagnosis at this time Is patient on ventilator? No Is Patient Ambulatory and/or Out of Bed Yes REE-([place]-St. Jeor-ambulatory/OOB) [ 1542.125 [id number]] Calculation Used for Recommendations [facility] Additional Notes Protein needs: 68-81g(1-1.2g/ kg) Fluid needs: 1mL/kcal Nutrition Intervention Change Diet Order: Continue Mechanical Soft Anticipated Discharge Needs: Mechanical Soft Diet Revisit per MD consult or patient Sign Off request:
--- NOTE | 2019-01-04 11:28 | Progress Note ---
Assessment and Plan Imp: 1. Pneumonia; cannot r/o influenza 2. A/C systolic CHF 3. ICMP 4. CAD 5. Acute respiratory failure, hypoxia 6. Pulm HTN 2/2 LV dysfunction Rec: 1. Cont. empiric ABX for pneumonia; complete 10 days total 2. Cont. Lasix, as per cardiology 3. Wean O2 to off, keeping sats 88% or >; home O2 eval. prior to d/c (6 minute walk) 4. CXR is much improved, and she is clinically better; if RA sats are acceptable she can be discharged pulmonary-barr. Asked RT to check room air sats. Subjective Date of service: 01/04/19 Principal diagnosis: Shortness of breath Interval history: no acute events. Asleep at the bedside. No family present Objective Vital Signs - 12hr 01/03/19 01/04/19 01/04/19 23:30 04:27 05:28 Temperature 100.2 F H 97.6 F 97.8 F Pulse Rate 100 H 89 91 H Pulse Rate [ Anterior Bilateral Throughout] Respiratory 16 14 20 Rate Respiratory Rate [Anterior Bilateral Throughout] Blood Pressure 102/55 111/61 100/54 O2 Sat by Pulse 98 95 95 Oximetry 01/04/19 01/04/19 01/04/19 07:28 07:38 08:00 Temperature 98.4 F Pulse Rate 95 H Pulse Rate [ 95 H 97 H Anterior Bilateral Throughout] Respiratory 20 Rate Respiratory 18 18 Rate [Anterior Bilateral Throughout] Blood Pressure 116/53 O2 Sat by Pulse 96 94 Oximetry Constitutional: no acute distress, alert Eyes: non-icteric ENT: oropharynx moist Neck: supple Effort: normal Ascultation: Bilateral: rales (bases) Cardiovascular: regular rate and rhythm (no mrg) Gastrointestinal: normoactive bowel sounds, soft, non-tender, non-distended Integumentary: normal Extremities: no cyanosis, no edema, pink and warm Neurologic: normal mental status, non-focal exam, pupils equal and round, CN II- XII normal Psychiatric: mood appropriate, affect normal CBC and BMP: 01/04/19 04:41 01/04/19 04:41 ABG, PT/INR, D-dimer: ABG POC ABG pH 7.467 (7.35-7.45) H 12/31/18 10:15 POC ABG pCO2 45.8 (35-45) H 12/31/18 10:15 POC ABG pO2 72 (80-105) L 12/31/18 10:15 POC ABG HCO3 33.1 12/31/18 10:15 POC ABG Total CO2 34 12/31/18 10:15 POC ABG O2 Sat 95 12/31/18 10:15 Abnormal lab findings: Abnormal Labs 12/27/18 12/27/18 12/28/18 22:37 22:37 03:18 WBC RBC 3.63 L MCV 105 H MCH 34 H RDW 15.7 H Lymph % (Auto) 11.3 L [place] % (Auto) 9.5 H Lymph # 0.6 L [place] # Seg Neutrophils % 78.1 H Monocytes % (Manual) Monocytes # (Manual) POC ABG pH POC ABG pCO2 POC ABG pO2 Sodium 136 L Potassium Chloride Carbon Dioxide BUN Glucose Calcium Total Creatine Kinase 250 H NT-Pro-B Natriuret Pep 2231 H 12/31/18 12/31/18 12/31/18 10:09 10:09 10:15 WBC RBC 3.48 L MCV 102 H MCH 34 H RDW Lymph % (Auto) [place] % (Auto) Lymph # [place] # Seg Neutrophils % Monocytes % (Manual) Monocytes # (Manual) POC ABG pH 7.467 H POC ABG pCO2 45.8 H POC ABG pO2 72 L Sodium 136 L Potassium Chloride 91.2 L Carbon Dioxide BUN 23 H Glucose 107 H Calcium 8.3 L Total Creatine Kinase NT-Pro-B Natriuret Pep 01/01/19 01/01/19 01/02/19 04:37 04:37 07:11 WBC 4.4 L RBC 3.40 L MCV 102 H MCH 34 H RDW Lymph % (Auto) [place] % (Auto) Lymph # [place] # Seg Neutrophils % Monocytes % (Manual) Monocytes # (Manual) POC ABG pH POC ABG pCO2 POC ABG pO2 Sodium Potassium 3.3 L Chloride 93.4 L 92.6 L Carbon Dioxide 32 H BUN Glucose 110 H Calcium Total Creatine Kinase NT-Pro-B Natriuret Pep 01/04/19 01/04/19 04:41 04:41 WBC RBC 3.45 L MCV 102 H MCH 34 H RDW Lymph % (Auto) [place] % (Auto) Lymph # [place] # 1.9 H Seg Neutrophils % Monocytes % (Manual) 13.0 H Monocytes # (Manual) 1.3 H POC ABG pH POC ABG pCO2 POC ABG pO2 Sodium 133 L Potassium Chloride 89.8 L Carbon Dioxide 31 H BUN Glucose 121 H Calcium Total Creatine Kinase NT-Pro-B Natriuret Pep
[2019-01-04] MEDS: SENOKOT PO PRN (21:28)
[2019-01-04] MEDS: TYLENOL PO PRN (21:29)
[2019-01-05] MEDS: BENADRYL PO PRN (03:48)
[2019-01-05] MEDS: LASIX IV SCH ×2 (06:17→17:35)
[2019-01-05] MEDS: SYNTHROID PO SCH (06:17)
[2019-01-05] MEDS: DUONEB *Not for PRN Use IH SCH ×4 (07:37→21:09)
--- NOTE | 2019-01-05 10:13 | Progress Note ---
Assessment and Plan Acute systolic heart failure patient admits non-compliance with her diuretic therapy Shortness of breath Bilateral pulmonary infiltrates on CXR Hx of Ischemic CMP LVEF 30-35% Patent LAD and Cx stents by [facility] 2011 MPI revealed fixed anterior, anterolateral, lateral and septal wall defect, no ischemia 02/2014 Hx of CAD Presence of AICD Atrial tachycardia seen on telemetry likely s/t nebulizer treatments Recommendations: Continue medical therapy for coronary artery disease and chronic systolic heart failure. Subjective Date of service: 01/05/19 Principal diagnosis: Shortness of breath Interval history: No cardiac complaints. Stable sinus rhythm on telemetry. Objective Vital Signs Temp Pulse Pulse Pulse Resp Resp Resp 01/05/19 07:51 90 18 01/05/19 07:38 91 H 20 01/05/19 04:43 98.1 F 89 28 H 01/04/19 23:35 97.6 F 88 20 01/04/19 20:00 100 H 01/04/19 19:55 99.5 F 101 H 24 01/04/19 19:24 100 H 17 01/04/19 19:19 01/04/19 19:18 99 H 18 01/04/19 18:20 01/04/19 16:27 92 H 18 01/04/19 16:25 95 H 20 01/04/19 16:24 99.2 F 01/04/19 16:17 95 H 18 01/04/19 15:05 01/04/19 11:52 94 H 20 01/04/19 11:48 98.7 F 01/04/19 11:43 94 H 18 01/04/19 11:33 95 H 18 01/04/19 11:25 BP Pulse Ox 01/05/19 07:51 01/05/19 07:38 93 01/05/19 04:43 111/53 96 01/04/19 23:35 93/51 95 01/04/19 20:00 01/04/19 19:55 103/45 94 01/04/19 19:24 01/04/19 19:19 87 01/04/19 19:18 01/04/19 18:20 89 01/04/19 16:27 01/04/19 16:25 100/55 93 01/04/19 16:24 01/04/19 16:17 01/04/19 15:05 87 01/04/19 11:52 93/48 90 01/04/19 11:48 01/04/19 11:43 01/04/19 11:33 01/04/19 11:25 88 - Physical Examination General: No Apparent Distress HEENT: Positive: PERRL Neck: Positive: trachea midline Cardiac: Positive: Reg Rate and Rhythm Lungs: Positive: Decreased Breath Sounds Neuro: Positive: Grossly Intact Extremities: Present: +1 Edema
[2019-01-05] MEDS: HEPARIN SUB-Q SCH ×2 (11:16→21:30)
[2019-01-05] MEDS: ASPIRIN PO SCH (11:16)
[2019-01-05] MEDS: COREG PO SCH ×2 (11:17→21:30)
[2019-01-05] MEDS: COZAAR PO SCH (11:17)
[2019-01-05] MEDS: ALDACTONE PO SCH (11:17)
--- NOTE | 2019-01-05 11:30 | Progress Note ---
Assessment and Plan Imp: 1. Pneumonia; cannot r/o influenza 2. A/C systolic CHF 3. ICMP 4. CAD 5. Acute respiratory failure, hypoxia 6. Pulm HTN 2/2 LV dysfunction Rec: 1. Cont. empiric ABX for pneumonia; complete 10 days total 2. Cont. Lasix, as per cardiology 3. Wean O2 to off, keeping sats 88% or >; home O2 eval. prior to d/c (6 minute walk), should qualify based on what room air sat was. 4. CXR is much improved, and she is clinically better Subjective Date of service: 01/05/19 Principal diagnosis: Shortness of breath Interval history: Room air sat told to me yesterday by RT was 88. Patient hasn't been assessed on a walk but most likely will qualify. Objective Vital Signs - 12hr 01/04/19 01/05/19 01/05/19 23:35 04:43 07:38 Temperature 97.6 F 98.1 F Pulse Rate 88 89 Pulse Rate [ 91 H Anterior Bilateral Throughout] Pulse Rate [ Anterior Right Throughout] Respiratory 20 28 H Rate Respiratory 20 Rate [Anterior Bilateral Throughout] Respiratory Rate [Anterior Right Throughout] Blood Pressure 93/51 111/53 O2 Sat by Pulse 95 96 93 Oximetry 01/05/19 07:51 Temperature Pulse Rate Pulse Rate [ Anterior Bilateral Throughout] Pulse Rate [ 90 Anterior Right Throughout] Respiratory Rate Respiratory Rate [Anterior Bilateral Throughout] Respiratory 18 Rate [Anterior Right Throughout] Blood Pressure O2 Sat by Pulse Oximetry Constitutional: no acute distress, alert Eyes: non-icteric ENT: oropharynx moist Neck: supple Effort: normal Ascultation: Bilateral: rales (bases) Cardiovascular: regular rate and rhythm (no mrg) Gastrointestinal: normoactive bowel sounds, soft, non-tender, non-distended Integumentary: normal Extremities: no cyanosis, no edema, pink and warm Neurologic: normal mental status, non-focal exam, pupils equal and round, CN II- XII normal Psychiatric: mood appropriate, affect normal CBC and BMP: 01/04/19 04:41 01/04/19 04:41 ABG, PT/INR, D-dimer: ABG POC ABG pH 7.467 (7.35-7.45) H 12/31/18 10:15 POC ABG pCO2 45.8 (35-45) H 12/31/18 10:15 POC ABG pO2 72 (80-105) L 12/31/18 10:15 POC ABG HCO3 33.1 12/31/18 10:15 POC ABG Total CO2 34 12/31/18 10:15 POC ABG O2 Sat 95 12/31/18 10:15 Abnormal lab findings: Abnormal Labs 12/27/18 12/27/18 12/28/18 22:37 22:37 03:18 WBC RBC 3.63 L MCV 105 H MCH 34 H RDW 15.7 H Lymph % (Auto) 11.3 L [place] % (Auto) 9.5 H Lymph # 0.6 L [place] # Seg Neutrophils % 78.1 H Monocytes % (Manual) Monocytes # (Manual) POC ABG pH POC ABG pCO2 POC ABG pO2 Sodium 136 L Potassium Chloride Carbon Dioxide BUN Glucose Calcium Total Creatine Kinase 250 H NT-Pro-B Natriuret Pep 2231 H 12/31/18 12/31/18 12/31/18 10:09 10:09 10:15 WBC RBC 3.48 L MCV 102 H MCH 34 H RDW Lymph % (Auto) [place] % (Auto) Lymph # [place] # Seg Neutrophils % Monocytes % (Manual) Monocytes # (Manual) POC ABG pH 7.467 H POC ABG pCO2 45.8 H POC ABG pO2 72 L Sodium 136 L Potassium Chloride 91.2 L Carbon Dioxide BUN 23 H Glucose 107 H Calcium 8.3 L Total Creatine Kinase NT-Pro-B Natriuret Pep 01/01/19 01/01/19 01/02/19 04:37 04:37 07:11 WBC 4.4 L RBC 3.40 L MCV 102 H MCH 34 H RDW Lymph % (Auto) [place] % (Auto) Lymph # [place] # Seg Neutrophils % Monocytes % (Manual) Monocytes # (Manual) POC ABG pH POC ABG pCO2 POC ABG pO2 Sodium Potassium 3.3 L Chloride 93.4 L 92.6 L Carbon Dioxide 32 H BUN Glucose 110 H Calcium Total Creatine Kinase NT-Pro-B Natriuret Pep 01/04/19 01/04/19 04:41 04:41 WBC RBC 3.45 L MCV 102 H MCH 34 H RDW Lymph % (Auto) [place] % (Auto) Lymph # [place] # 1.9 H Seg Neutrophils % Monocytes % (Manual) 13.0 H Monocytes # (Manual) 1.3 H POC ABG pH POC ABG pCO2 POC ABG pO2 Sodium 133 L Potassium Chloride 89.8 L Carbon Dioxide 31 H BUN Glucose 121 H Calcium Total Creatine Kinase NT-Pro-B Natriuret Pep
[2019-01-05] MEDS: SENOKOT PO PRN (14:26)
--- NOTE | 2019-01-05 15:15 | Progress Note ---
Assessment and Plan Assessment and plan: Acute on chronic systolic heart failure. Lasix iv Coreg po Cardiology following Acute hypoxemic respiratory failure. She may need home O2 On supplemental oxygen Pulmonary following Ischemic Cardiomyopathy s/p AICD LVEF 30-35%, Patent LAD and Cx stents by [facility] 2011. MPI revealed fixed anterior, anterolateral, lateral and septal wall defect, no ischemia 02/2014 AICD CAD s/p PCI Bilateral pneumonia. Cont Rocephin, Zithromax, f/u sputum cx Pulmonary hypertension. Etiology secondary to LV dysfunction. Hypothyroidsim. Levothyroxine DVT prophylaxis with Heparin may need home Oxygen Full code status History Interval history: No new issues overnight. Hospitalist Physical - Constitutional Vitals: Temp Pulse Resp BP Pulse Ox 98.1 F 95 H 20 105/52 93 01/05/19 04:43 01/05/19 11:45 01/05/19 11:45 01/05/19 11:17 01/05/19 07:38 General appearance: Present: no acute distress - EENT Eyes: Present: PERRL, EOM intact ENT: hearing intact, clear oral mucosa, dentition normal - Neck Neck: Present: supple, normal ROM - Respiratory Respiratory effort: normal Respiratory: bilateral: CTA - Cardiovascular Rhythm: regular Heart Sounds: Present: S1 & S2. Absent: gallop, rub - Extremities Extremities: no ischemia, No edema, Full ROM - Abdominal General gastrointestinal: soft, non-tender, non-distended, normal bowel sounds - Integumentary Integumentary: Present: clear, warm, dry - Neurologic Neurologic: CNII-XII intact, moves all extremities Results - Labs CBC & Chem 7: 01/04/19 04:41 01/04/19 04:41 Labs: Laboratory Last Values WBC 9.8 K/mm3 (4.5-11.0) 01/04/19 04:41 RBC 3.45 M/mm3 (3.65-5.03) L 01/04/19 04:41 Hgb 11.7 gm/dl (10.1-14.3) 01/04/19 04:41 Hct 35.0 % (30.3-42.9) 01/04/19 04:41 MCV 102 fl (79-97) H 01/04/19 04:41 MCH 34 pg (28-32) H 01/04/19 04:41 MCHC 34 % (30-34) 01/04/19 04:41 RDW 14.6 % (13.2-15.2) 01/04/19 04:41 Plt Count 237 K/mm3 (140-440) 01/04/19 04:41 Lymph % (Auto) 11.3 % (13.4-35.0) L 12/27/18 22:37 [place] % (Auto) [place] 01/04/19 04:41 Eos % (Auto) 1.0 % (0.0-4.3) 01/04/19 04:41 Baso % (Auto) 0.9 % (0.0-1.8) 12/27/18 22:37 Lymph # 0.6 K/mm3 (1.2-5.4) L 12/27/18 22:37 [place] # 1.9 K/mm3 (0.0-0.8) H 01/04/19 04:41 Eos # 0.1 K/mm3 (0.0-0.4) 01/04/19 04:41 Baso # 0.1 K/mm3 (0.0-0.1) 01/04/19 04:41 Add Manual Diff Complete 01/04/19 04:41 Total Counted 100 01/04/19 04:41 Seg Neutrophils % 65.1 % (40.0-70.0) 01/04/19 04:41 Seg Neuts % (Manual) 70.0 % (40.0-70.0) 01/04/19 04:41 Band Neutrophils % 0 % 01/04/19 04:41 Lymphocytes % (Manual) 16.0 % (13.4-35.0) 01/04/19 04:41 Reactive Lymphs % (Man) 0 % 01/04/19 04:41 Monocytes % (Manual) 13.0 % (0.0-7.3) H 01/04/19 04:41 Eosinophils % (Manual) 1.0 % (0.0-4.3) 01/04/19 04:41 Basophils % (Manual) 0 % (0.0-1.8) 01/04/19 04:41 Metamyelocytes % 0 % 01/04/19 04:41 Myelocytes % 0 % 01/04/19 04:41 Promyelocytes % 0 % 01/04/19 04:41 Blast Cells % 0 % 01/04/19 04:41 Nucleated RBC % Not Reportable 01/04/19 04:41 Seg Neutrophils # 6.4 K/mm3 (1.8-7.7) 01/04/19 04:41 Seg Neutrophils # Man 6.9 K/mm3 (1.8-7.7) 01/04/19 04:41 Band Neutrophils # 0.0 K/mm3 01/04/19 04:41 Lymphocytes # (Manual) 1.6 K/mm3 (1.2-5.4) 01/04/19 04:41 Abs React Lymphs (Man) 0.0 K/mm3 01/04/19 04:41 Monocytes # (Manual) 1.3 K/mm3 (0.0-0.8) H 01/04/19 04:41 Eosinophils # (Manual) 0.1 K/mm3 (0.0-0.4) 01/04/19 04:41 Basophils # (Manual) 0.0 K/mm3 (0.0-0.1) 01/04/19 04:41 Metamyelocytes # 0.0 K/mm3 01/04/19 04:41 Myelocytes # 0.0 K/mm3 01/04/19 04:41 Promyelocytes # 0.0 K/mm3 01/04/19 04:41 Blast Cells # 0.0 K/mm3 01/04/19 04:41 WBC Morphology Not Reportable 01/04/19 04:41 Hypersegmented Neuts Not Reportable 01/04/19 04:41 Hyposegmented Neuts Not Reportable 01/04/19 04:41 Hypogranular Neuts Not Reportable 01/04/19 04:41 Smudge Cells Not Reportable 01/04/19 04:41 Toxic Granulation Not Reportable 01/04/19 04:41 Toxic Vacuolation Not Reportable 01/04/19 04:41 Dohle Bodies Not Reportable 01/04/19 04:41 Pelger-Huet Anomaly Not Reportable 01/04/19 04:41 Francoise Rods Not Reportable 01/04/19 04:41 Platelet Estimate Consistent w auto 01/04/19 04:41 Clumped Platelets Not Reportable 01/04/19 04:41 Plt Clumps, EDTA Not Reportable 01/04/19 04:41 Large Platelets Not Reportable 01/04/19 04:41 Giant Platelets Few 01/04/19 04:41 Platelet Satelliting Not Reportable 01/04/19 04:41 Plt Morphology Comment Not Reportable 01/04/19 04:41 RBC Morphology Not Reportable 01/04/19 04:41 Dimorphic RBCs Not Reportable 01/04/19 04:41 Polychromasia Not Reportable 01/04/19 04:41 Hypochromasia Not Reportable 01/04/19 04:41 Poikilocytosis 1+ 01/04/19 04:41 Anisocytosis 1+ 01/04/19 04:41 Microcytosis Not Reportable 01/04/19 04:41 Macrocytosis Not Reportable 01/04/19 04:41 Spherocytes Not Reportable 01/04/19 04:41 Pappenheimer Bodies Not Reportable 01/04/19 04:41 Sickle Cells Not Reportable 01/04/19 04:41 Target Cells Not Reportable 01/04/19 04:41 Tear Drop Cells Not Reportable 01/04/19 04:41 Ovalocytes Not Reportable 01/04/19 04:41 Helmet Cells Not Reportable 01/04/19 04:41 Valdivia-Herbst Bodies Not Reportable 01/04/19 04:41 [place] Rings Not Reportable 01/04/19 04:41 Buchtel Cells Not Reportable 01/04/19 04:41 Bite Cells Not Reportable 01/04/19 04:41 Crenated Cell Not Reportable 01/04/19 04:41 Elliptocytes Not Reportable 01/04/19 04:41 Acanthocytes (Spur) Not Reportable 01/04/19 04:41 Rouleaux Not Reportable 01/04/19 04:41 Hemoglobin C Crystals Not Reportable 01/04/19 04:41 Schistocytes Not Reportable 01/04/19 04:41 Malaria parasites Not Reportable 01/04/19 04:41 Kane Bodies Not Reportable 01/04/19 04:41 Hem Pathologist Commnt No 01/04/19 04:41 POC ABG pH 7.467 (7.35-7.45) H 12/31/18 10:15 POC ABG pCO2 45.8 (35-45) H 12/31/18 10:15 POC ABG pO2 72 (80-105) L 12/31/18 10:15 POC ABG HCO3 33.1 12/31/18 10:15 POC ABG Total CO2 34 12/31/18 10:15 POC ABG O2 Sat 95 12/31/18 10:15 POC ABG Base Excess 9 12/31/18 10:15 FiO2 4 % 12/31/18 10:15 Sodium 133 mmol/L (137-145) L 01/04/19 04:41 Potassium 3.7 mmol/L (3.6-5.0) 01/04/19 04:41 Chloride 89.8 mmol/L (98-107) L 01/04/19 04:41 Carbon Dioxide 31 mmol/L (22-30) H 01/04/19 04:41 Anion Gap 16 mmol/L 01/04/19 04:41 BUN 17 mg/dL (7-17) 01/04/19 04:41 Creatinine 1.1 mg/dL (0.7-1.2) 01/04/19 04:41 Estimated GFR 50 ml/min 01/04/19 04:41 BUN/Creatinine Ratio 15 % 01/04/19 04:41 Glucose 121 mg/dL (65-100) H 01/04/19 04:41 Lactic Acid 1.90 mmol/L (0.7-2.0) 12/28/18 01:43 Calcium 8.9 mg/dL (8.4-10.2) 01/04/19 04:41 Total Creatine Kinase 250 units/L (30-135) H 12/28/18 03:18 CK-MB (CK-2) 3.7 ng/mL (0.0-4.0) 12/28/18 03:18 CK-MB (CK-2) Rel Index 1.4 (0-4) 12/28/18 03:18 Troponin T < 0.010 ng/mL (0.00-0.029) 12/28/18 03:18 NT-Pro-B Natriuret Pep 2231 pg/mL (0-900) H 12/27/18 22:37 Urine Color Yellow (Yellow) 12/27/18 01:10 Urine Turbidity Clear (Clear) 12/27/18 01:10 Urine pH 5.0 (5.0-7.0) 12/27/18 01:10 Ur Specific [place] 1.023 (1.003-1.030) 12/27/18 01:10 Urine Protein 100 mg/dl mg/dL (Negative) 12/27/18 01:10 Urine Glucose (UA) Neg mg/dL (Negative) 12/27/18 01:10 Urine Ketones 20 mg/dL (Negative) 12/27/18 01:10 Urine Blood Neg (Negative) 12/27/18 01:10 Urine Nitrite Neg (Negative) 12/27/18 01:10 Urine Bilirubin Neg (Negative) 12/27/18 01:10 Urine Urobilinogen < 2.0 mg/dL (<2.0) 12/27/18 01:10 Ur Leukocyte Esterase Neg (Negative) 12/27/18 01:10 Urine WBC (Auto) 3.0 /HPF (0.0-6.0) 12/27/18 01:10 Urine RBC (Auto) 1.0 /HPF (0.0-6.0) 12/27/18 01:10 U Epithel Cells (Auto) < 1.0 /HPF (0-13.0) 12/27/18 01:10 Urine Mucus Few /HPF 12/27/18 01:10 Nutrition/Malnutrition Assess - Dietary Evaluation Nutrition/Malnutrition Findings: Nutrition Notes Start: 01/04/19 09:16 Freq: Status: Active Protocol: Document 01/04/19 09:16 ER (Rec: 01/04/19 09:24 ER [id number]) Co-Sign 01/04/19 09:16 LP Nutrition Notes Need for Assessment generated from: LOS Initial or Follow up Assessment Current Diagnosis Coronary Artery Disease Hypertension Other Pertinent Diagnosis Pneumonia Current Diet Mechanical Soft Labs/Tests Na: 133 Pertinent Medications Reviewed Height 5 ft 2 in Weight 67.8 kg [place] Body Weight (kg) 50.00 BMI 27.3 Weight Status Overweight Subjective/Other Information Screen for LOS. Pt. eating 75% of meals. Pt. stated she has her appetite back and the mechanical soft diet has helped. Pt. denied having N/V/ D/C or chewing/swallowing difficulties. Pt. denied need for ONS. Percent of energy/protein needs met: 100% Burn Absent Trauma Absent GI Symptoms None Food Allergy No Minimum of two criteria No #1 Nutrition Diagnosis No nutrition diagnosis at this time Is patient on ventilator? No Is Patient Ambulatory and/or Out of Bed Yes REE-([place]-St. Jeor-ambulatory/OOB) [ 1542.125 [id number]] Calculation Used for Recommendations [facility] Additional Notes Protein needs: 68-81g(1-1.2g/ kg) Fluid needs: 1mL/kcal Nutrition Intervention Change Diet Order: Continue Mechanical Soft Anticipated Discharge Needs: Mechanical Soft Diet Revisit per MD consult or patient Sign Off request:
[2019-01-06] MEDS: TYLENOL PO PRN (05:06)
[2019-01-06] MEDS: LASIX IV SCH (05:07)
[2019-01-06] MEDS: SYNTHROID PO SCH (05:07)
--- NOTE | 2019-01-06 09:00 | Progress Note ---
Assessment and Plan - Patient Problems (1) Acute on chronic systolic heart failure Current Visit: Yes Status: Acute Plan to address problem: Heart failure is well compensated, continue medical therapy, stable cardiac status. Subjective Date of service: 01/06/19 Principal diagnosis: Shortness of breath Interval history: Patient is comfortable, no further chest pain or shortness of breath, laying comfortably supine in bed. Objective Vital Signs Temp Pulse Pulse Pulse Resp Resp BP 01/06/19 07:41 97.6 F 85 18 101/54 01/06/19 05:06 20 01/06/19 05:04 98.4 F 93 H 18 107/57 01/05/19 23:56 98.3 F 94 H 8 L 109/55 01/05/19 21:30 107 H 114/50 01/05/19 21:28 98.6 F 105 H 20 114/50 01/05/19 21:20 100 H 13 01/05/19 21:13 01/05/19 21:10 103 H 15 01/05/19 20:00 97 H 01/05/19 19:30 98.1 F 97 H 18 102/55 01/05/19 16:40 101 H 109/66 01/05/19 11:45 95 H 20 01/05/19 11:32 97 H 18 01/05/19 11:17 95 H 105/51 01/05/19 10:00 95 H Pulse Ox 01/06/19 07:41 93 01/06/19 05:06 01/06/19 05:04 91 01/05/19 23:56 94 01/05/19 21:30 01/05/19 21:28 97 01/05/19 21:20 01/05/19 21:13 94 01/05/19 21:10 01/05/19 20:00 01/05/19 19:30 96 01/05/19 16:40 89 01/05/19 11:45 01/05/19 11:32 01/05/19 11:17 01/05/19 10:00 - Physical Examination General: No Apparent Distress HEENT: Positive: PERRL Neck: Positive: trachea midline Cardiac: Positive: Reg Rate and Rhythm Lungs: Positive: clear to auscultation Neuro: Positive: Grossly Intact Abdomen: Positive: Soft Skin: Positive: Clear Extremities: Absent: edema
[2019-01-06] MEDS: DUONEB *Not for PRN Use IH SCH ×2 (09:32→12:50)
--- NOTE | 2019-01-06 10:25 | Discharge Summary ---
Providers - Providers Date of Admission: 12/28/18 01:15 Date of discharge: 01/06/19 Attending physician: TORIN MARCANO 12/28/18 12:25 Consult to Physician [CONS] Routine Comment: Consulting Provider: RAFIA BENDER Physician Instructions: Reason For Exam: Shortness of breath, CHF 12/31/18 09:33 Consult to Physician [CONS] Routine Comment: Consulting Provider: DES FIGUEROA Physician Instructions: Reason For Exam: Shortness of breath,resp failure,pneumonia [facility] Reason for admission: chf exac Condition: Poor Hospital course: Patient is a 63 year old woman with a history of coronary artery disease, ischemic cardiomyopathy and has an indwelling cardiac defibrillator who presented to this hospital with complaints of shortness of breath, coughs and lower extremity edema. Chest x-ray showed heart failure. Further cardiac ev aluation with an echocardiogram revealed least moderate MR, moderate pulmonary hypertension. Left atrium is dilated with severely decreased left ventricular systolic function ejection 15-20%. Cardiac consultation was requested. The patient was admitted with diagnoses of acute hypoxic respiratory failure etiology thought to be secondary to acute on chronic systolic heart failure as well as pneumonia and pulmonary hypertension. Pulmonary also saw the patient in consultation. Patient was found on further evaluation to have pneumonia as well which was treated with antibiotics. With regards to the heart failure, treatment included diuresis with Lasix IV twice a day, spironolactone, Coreg and Cozaar. Pulmonary recommended home O2 and case management will be consulted prior to discharge. Chest x-ray was noted to be much improved and patient clinically better. Therefore, patient is felt to have received maximal hospital benefit and thus will be discharged home. Dedicated discharge time 35 minutes. Disposition: - TO HOME OR SELFCARE Time spent for discharge: 35 - Discharge Diagnoses (1) Pulmonary hypertension Status: Acute (2) Ischemic cardiomyopathy Status: Acute (3) CAD (coronary artery disease) Status: Acute (4) Acute on chronic systolic heart failure Status: Acute (5) Bronchospasm Status: Acute (6) Pneumonia Status: Acute (7) Acute respiratory failure with hypoxia Status: Acute Core Measure Documentation - Palliative Care Palliative Care/ Comfort Measures: Not Applicable - Core Measures Any of the following diagnoses?: heart failure - Heart Failure Discharge Requirements ANNA/ARB for LVSD if EF <40%: Yes Beta william at discharge: Yes Exam - Constitutional Vitals: Temp Pulse Resp BP Pulse Ox 97.6 F 88 16 101/54 93 01/06/19 07:41 01/06/19 09:32 01/06/19 09:32 01/06/19 07:41 01/06/19 09:32 General appearance: Present: no acute distress, well-nourished - EENT Eyes: Present: PERRL ENT: hearing intact, clear oral mucosa - Neck Neck: Present: supple, normal ROM - Respiratory Respiratory effort: normal Respiratory: bilateral: CTA - Cardiovascular Heart Sounds: Present: S1 & S2. Absent: rub, click - Extremities Extremities: pulses symmetrical, No edema Peripheral Pulses: within normal limits - Abdominal General gastrointestinal: Present: soft, non-tender, non-distended, normal bowel sounds Female genitourinary: Present: normal - Integumentary Integumentary: Present: clear, warm, dry - Musculoskeletal Musculoskeletal: gait normal, strength equal bilaterally - Psychiatric Psychiatric: appropriate mood/affect, intact judgment & insight - Neurologic Neurologic: CNII-XII intact, moves all extremities Plan Activity: no restrictions Weight Bearing Status: Full Weight Bearing Diet: low fat, low cholesterol, low salt Special Instructions: restrict fluid intake to (1L) Durable Medical Equipment Needed Upon Discharge: Oxygen [facility]Primary Care Provider] - 3-5 Days DES FIGUEROA MD [Staff Physician] - 7 Days RADU TANG MD [Staff Physician] - 7 Days Prescriptions: ALBUTEROL Inhaler (OR & NICU) [ProAir HFA Inhaler] 2 puff IH QID PRN #1 inhalation PRN Reason: Shortness Of Breath amLODIPine 2.5 mg PO DAILY PRN #30 PRN Reason: Angina Aspirin [Aspirin TAB] 325 mg PO QDAY #30 tablet Carvedilol [Coreg] 6.25 mg PO BID #60 tablet diphenhydrAMINE [Benadryl CAP] 25 mg PO Q8HR PRN #30 capsule PRN Reason: Allergy Symptoms Famotidine 40 mg PO BID #60 Furosemide [Lasix] 40 mg PO BID #60 tablet Klor-Con 10 10 meq PO DAILY #30 levoFLOXacin [Levaquin TAB] 500 mg PO QDAY #10 tablet Levothyroxine [Synthroid] 75 mcg PO QAM #30 tablet Losartan [Cozaar] 25 mg PO QDAY #30 tablet Sennosides [Senokot] 1 tab PO PRN PRN #30 tablet PRN Reason: Constipation Spironolactone [Aldactone] 25 mg PO QDAY #30 tablet
[2019-01-06] MEDS: COZAAR PO SCH (10:47)
[2019-01-06] MEDS: ALDACTONE PO SCH (10:48)
[2019-01-06] MEDS: COREG PO SCH (10:48)
[2019-01-06] MEDS: ASPIRIN PO SCH (10:48)
[2019-01-06] MEDS: HEPARIN SUB-Q SCH (10:49)
[2019-01-06 11:49] VITALS: BP 105/55
[2019-01-06] MEDS ORDERED: MORPHINE IV ONE (13:13)
--- NOTE | 2019-01-06 13:56 | Progress Note ---
Assessment and Plan Imp: 1. Pneumonia; cannot r/o influenza 2. A/C systolic CHF 3. ICMP 4. CAD 5. Acute respiratory failure, hypoxia 6. Pulm HTN 2/2 LV dysfunction 7. Chest pain Rec: 1. Cont. empiric ABX for pneumonia; complete 10 days total 2. Cont. Lasix, as per cardiology 3. Wean O2 to off, keeping sats 88% or >; home O2 eval. prior to d/c (6 minute walk), should qualify based on what room air sat was. 4. CXR is much improved, and she is clinically better 5. Consider holding dc and do cardiac w/u prior to dc Subjective Date of service: 01/06/19 Principal diagnosis: Shortness of breath Interval history: Pt was ready for dc but developed left jaw and arm pain since this am Objective Vital Signs - 12hr 01/06/19 01/06/19 01/06/19 05:04 05:06 07:41 Temperature 98.4 F 97.6 F Pulse Rate 93 H 85 Pulse Rate [ Anterior Right Throughout] Pulse Rate [ Apical] Pulse Rate [ From Monitor] Respiratory 18 20 18 Rate Respiratory Rate [Anterior Right Throughout] Blood Pressure 107/57 101/54 O2 Sat by Pulse 91 93 Oximetry 01/06/19 01/06/19 01/06/19 09:32 09:40 10:00 Temperature Pulse Rate Pulse Rate [ 88 89 Anterior Right Throughout] Pulse Rate [ 84 Apical] Pulse Rate [ 90 From Monitor] Respiratory 20 Rate Respiratory 16 16 Rate [Anterior Right Throughout] Blood Pressure O2 Sat by Pulse 93 94 Oximetry 01/06/19 01/06/19 01/06/19 10:45 10:47 10:48 Temperature 98.2 F Pulse Rate 87 89 89 Pulse Rate [ Anterior Right Throughout] Pulse Rate [ Apical] Pulse Rate [ From Monitor] Respiratory 20 Rate Respiratory Rate [Anterior Right Throughout] Blood Pressure 102/51 102/51 102/51 O2 Sat by Pulse 94 Oximetry 01/06/19 01/06/19 01/06/19 11:46 12:50 13:00 Temperature Pulse Rate 87 Pulse Rate [ 90 92 H Anterior Right Throughout] Pulse Rate [ Apical] Pulse Rate [ From Monitor] Respiratory Rate Respiratory 16 16 Rate [Anterior Right Throughout] Blood Pressure 105/55 O2 Sat by Pulse 92 Oximetry 01/06/19 13:23 Temperature Pulse Rate Pulse Rate [ Anterior Right Throughout] Pulse Rate [ Apical] Pulse Rate [ From Monitor] Respiratory 20 Rate Respiratory Rate [Anterior Right Throughout] Blood Pressure O2 Sat by Pulse Oximetry Constitutional: no acute distress, alert Eyes: non-icteric ENT: oropharynx moist Neck: supple Effort: normal Ascultation: Bilateral: rales (bases) Cardiovascular: regular rate and rhythm (no mrg) Gastrointestinal: normoactive bowel sounds, soft, non-tender, non-distended Integumentary: normal Extremities: no cyanosis, no edema, pink and warm Neurologic: normal mental status, non-focal exam, pupils equal and round, CN II- XII normal Psychiatric: mood appropriate, affect normal CBC and BMP: 01/04/19 04:41 01/04/19 04:41 ABG, PT/INR, D-dimer: ABG POC ABG pH 7.467 (7.35-7.45) H 12/31/18 10:15 POC ABG pCO2 45.8 (35-45) H 12/31/18 10:15 POC ABG pO2 72 (80-105) L 12/31/18 10:15 POC ABG HCO3 33.1 12/31/18 10:15 POC ABG Total CO2 34 12/31/18 10:15 POC ABG O2 Sat 95 12/31/18 10:15 Abnormal lab findings: Abnormal Labs 12/27/18 12/27/18 12/28/18 22:37 22:37 03:18 WBC RBC 3.63 L MCV 105 H MCH 34 H RDW 15.7 H Lymph % (Auto) 11.3 L Teller % (Auto) 9.5 H Lymph # 0.6 L Teller # Seg Neutrophils % 78.1 H Monocytes % (Manual) Monocytes # (Manual) POC ABG pH POC ABG pCO2 POC ABG pO2 Sodium 136 L Potassium Chloride Carbon Dioxide BUN Glucose Calcium Total Creatine Kinase 250 H NT-Pro-B Natriuret Pep 2231 H 12/31/18 12/31/18 12/31/18 10:09 10:09 10:15 WBC RBC 3.48 L MCV 102 H MCH 34 H RDW Lymph % (Auto) Teller % (Auto) Lymph # Teller # Seg Neutrophils % Monocytes % (Manual) Monocytes # (Manual) POC ABG pH 7.467 H POC ABG pCO2 45.8 H POC ABG pO2 72 L Sodium 136 L Potassium Chloride 91.2 L Carbon Dioxide BUN 23 H Glucose 107 H Calcium 8.3 L Total Creatine Kinase NT-Pro-B Natriuret Pep 01/01/19 01/01/19 01/02/19 04:37 04:37 07:11 WBC 4.4 L RBC 3.40 L MCV 102 H MCH 34 H RDW Lymph % (Auto) Teller % (Auto) Lymph # Teller # Seg Neutrophils % Monocytes % (Manual) Monocytes # (Manual) POC ABG pH POC ABG pCO2 POC ABG pO2 Sodium Potassium 3.3 L Chloride 93.4 L 92.6 L Carbon Dioxide 32 H BUN Glucose 110 H Calcium Total Creatine Kinase NT-Pro-B Natriuret Pep 01/04/19 01/04/19 04:41 04:41 WBC RBC 3.45 L MCV 102 H MCH 34 H RDW Lymph % (Auto) Teller % (Auto) Lymph # Teller # 1.9 H Seg Neutrophils % Monocytes % (Manual) 13.0 H Monocytes # (Manual) 1.3 H POC ABG pH POC ABG pCO2 POC ABG pO2 Sodium 133 L Potassium Chloride 89.8 L Carbon Dioxide 31 H BUN Glucose 121 H Calcium Total Creatine Kinase NT-Pro-B Natriuret Pep
== END 2019-01-06 17:08 | disposition home or self-care (01) | DRG 291 ==
LOC: ED 22:01 → 4A 12-28 01:15
PROVIDERS: ADMIT Internal Medicine; ATTEND Hospitalist
PROC: 4A033R1 Measurement of Arterial Saturation, Peripheral, Percutaneous Approach (ICD-10-PCS; principal; 2018-12-31)
DX: I11.0 Hypertensive heart disease with heart failure (principal); J18.9 Pneumonia, unspecified organism; J96.01 Acute respiratory failure with hypoxia; I50.23 Acute on chronic systolic (congestive) heart failure; I25.10 Atherosclerotic heart disease of native coronary artery without angina pectoris; E03.9 Hypothyroidism, unspecified; J98.01 Acute bronchospasm; I25.5 Ischemic cardiomyopathy; I27.20 Pulmonary hypertension, unspecified; Z79.82 Long term (current) use of aspirin; I25.2 Old myocardial infarction; Z79.899 Other long term (current) drug therapy; Z79.51 Long term (current) use of inhaled steroids; Z95.810 Presence of automatic (implantable) cardiac defibrillator
CPT/HCPCS: 36415; 36600; 71045; 71046; 80048; 81001; 82140; 82550; 82553; 82803; 83880; 84484; 85007; 85025; 85027; 87040; 93005; 93010; 93306; 94640; 94760; G0378; J0456; J0696; J1644; J1940; J2270; J2405; J2930; J7040; J7050